=== PATIENT | male | born 1960 | race Caucasian/White ===

== ENCOUNTER → 2020-05-01 11:56 | Outpatient (BNVA) | payer MEDICARE, MEDICAID, SELFPAY | PROVIDERS: PCP Internal Medicine; Visit Provider Urology | DX: Z13.89 Encounter for screening for other disorder (principal) | CPT/HCPCS: Q3014 ==

== ENCOUNTER 2020-07-15 19:50 | Inpatient (IN) | payer MEDICARE, MEDICAID, SELFPAY ==
[2020-07-15 20:07] VITALS: BP 98/66; PULSE 104; RESP 18; TEMP 36.1; O2SAT 97; BMI 22.4
[2020-07-15 20:15] VITALS: BP 94/61
[2020-07-15 20:30] VITALS: BP 102/66
--- NOTE | 2020-07-15 20:36 | ECG_ITS ---
Test Reason : OD Blood Pressure : / mmHG Vent. Rate : 086 BPM Atrial Rate : 086 BPM P-R Int : 186 ms QRS Dur : 098 ms QT Int : 366 ms P-R-T Axes : 062 [id number] 063 degrees QTc Int : 437 ms Normal sinus rhythm Right superior axis deviation Inferior infarct Abnormal ECG When compared with ECG of 26-NOV-2016 02:12, Inferior infarct present now Referred By: Bradley Calvin Electronically Signed By:Luis Campbell
[2020-07-15 20:37] LABS: Glucose Urine UA NEG (NEG); Leukocyte Esterase Urine NEG (NEG); Nitrite Urine NEG (NEG); Specific Gravity - Urine >= 1.030 (1.005-1.025); Urine Blood NEG (NEG); Urine Ketones NEG (NEG); Urine Protein 1+ MG/DL (NEG-TRACE)
[2020-07-15 20:41] LABS: Appearance Urine CLEAR; Color Urine YELLOW
[2020-07-15 20:55] LABS: Bacteria Urine TRACE /LPF; RBC Urine 0-2 /HPF (0); Squamous Epithelial Cell Urine 1+ /LPF; UACC CULT YES
[2020-07-15 21:04] LABS: Amphetamine Screen Urine Not Detected (Not Detect); Barbiturates, Urine Not Detected (Not Detect); Benzodiazepines Screen Urine Not Detected (Not Detect); Cannabinoid Screen Urine POSITIVE (Not Detect); Cocaine Screen Urine POSITIVE (Not Detect); Opiate Screen Urine Not Detected (Not Detect); Phencyclidine Screen Urine Not Detected (Not Detect)
[2020-07-15 21:18] LABS: MANUAL DIFF FLAG NO
[2020-07-15 21:20] LABS: Basophils Absolute Auto 0.1 X10*3/uL (0.0-0.2); Basophils Percent Auto 0.8 % (0-2); Eosinophils Absolute Auto 0.3 X10*3/uL (0.0-0.4); Eosinophils Percent Auto 4.5 % (0-4); Hematocrit 39.6 % (42-52); Hemoglobin 13.9 g/dl (14.0-18.0); Imm Gran Abs Auto 0.02 X10*3/uL (0.00-0.03); Imm Gran Pct Auto 0.3 % (0.0-0.4); Lymphocytes Absolute Auto 3.2 X10*3/uL (1.2-4.9); Lymphocytes Percent Auto 44.8 % (20-40); Mean Corpuscular HGB Conc 35.1 g/dl (31.0-36.0); Mean Corpuscular Hemoglobin 33.2 pg (27.0-33.0); Mean Corpuscular Volume 94.5 fL (80-98); Mean Platelet Volume 8.2 fL (9.4-12.4); Monocytes Absolute Auto 0.6 X10*3/uL (0.1-1.2); Monocytes Percent Auto 8.6 % (2-11); Neutrophils Absolute Auto 2.9 X10*3/uL (2.0-8.3); Platelet Count 272 X10*3/uL (160-400); Red Blood Count 4.19 X10*6/uL (4.60-5.80); Red Cell Distribution Width 13.5 % (11.0-16.0); White Blood Count 7.2 X10*3/uL (4.8-10.8)
[2020-07-15 21:27] LABS: Prothrombin Time 11.5 SEC (10.8-13.0)
--- NOTE | 2020-07-15 21:27 | ED.PSYCH ---
HPI - Psych General Chief Complaint: Psychiatric Symptoms <LOLA Alvarado Last Filed: 07/16/20 02:58> Stated Complaint: SI,OVERDOSE <LOLA Alvarado Last Filed: 07/16/20 02:58> Time Seen by Provider: 07/16/20 03:00 <LOLA Alvarado Last Filed: 07/16/20 02:58> Source: patient <LOLA Alvarado Last Filed: 07/16/20 02:58> Mode of arrival: ambulatory <LOLA Alvarado Last Filed: 07/16/20 02:58> Limitations: no limitations <LOLA Alvarado Last Filed: 07/16/20 02:58> History of Present Illness HPI Narrative: Patient presents to the ED for suicidal attempt. Patient took 5 extra clonidine pills at once earlier today. Patient usually takes for clonidine during day. Patient states he has been depressed and having problem with his new partner. Patient states also he remembered his previous toe partner who from overdose. Patient is tearful <LOLA Alvarado Last Filed: 07/16/20 02:58> Related Data Home Medications: Home Medications Medication Instructions Recorded Confirmed atorvastatin 1 tab PO DAILY 07/16/20 07/16/20 clonidine HCl 1 tab PO QID PRN 07/16/20 07/16/20 dolutegravir-lamivudine [Dovato] 1 tab PO DAILY 07/16/20 07/16/20 qgecamo-scv-jeujt-tenof alafen 1 tab PO DAILY 07/16/20 07/16/20 [Genvoya] esomeprazole magnesium 1 cap PO DAILY 07/16/20 07/16/20 fesoterodine [Toviaz] 1 tab PO DAILY 07/16/20 07/16/20 lamotrigine 1 tab PO BID 07/16/20 07/16/20 methylphenidate HCl 1 tab PO TID 07/16/20 07/16/20 olanzapine 1 tab PO BEDTIME 07/16/20 07/16/20 olanzapine 1 tab PO QAM 07/16/20 07/16/20 oxybutynin chloride 1 tab PO DAILY 07/16/20 07/16/20 prazosin 1 cap PO BEDTIME 07/16/20 07/16/20 quetiapine 1 tab PO TID 07/16/20 07/16/20 sertraline 1 tab PO DAILY 07/16/20 07/16/20 trazodone 1 tab PO BEDTIME 07/16/20 07/16/20 trimethoprim 1 tab PO DAILY 07/16/20 07/16/20 <LOLA Alvarado Last Filed: 07/16/20 02:58> Allergies/Adverse Reactions: Allergies Allergy/AdvReac Type Severity Reaction Status Date / Time bee pollen [BEE STINGS] Allergy Severe ANAPHYLAXIS Verified 07/16/20 00:00 <LOLA Alvarado Last Filed: 07/16/20 02:58> Review of Systems Review of Systems: Yes all other systems are reviewed and are negative <LOLA Alvarado Last Filed: 07/16/20 02:58> Constitutional: Constitutional: Reports as per HPI and Reports no additional constitutional complaints <LOLA Alvarado Last Filed: 07/16/20 02:58> Eyes: Eyes: Reports as per HPI and Reports no additional eye complaints <LOLA Alvarado Last Filed: 07/16/20 02:58> ENT: Reports system reviewed and no additional complaints, except as documented and Reports as per HPI <LOLA Alvarado Last Filed: 07/16/20 02:58> Cardiovascular: Cardiovascular: Reports as per HPI and Reports no additional cardiovascular complaints <LOLA Alvarado Last Filed: 07/16/20 02:58> Respiratory: Respiratory: Reports as per HPI and Reports no additional respiratory complaints <LOLA Alvarado Last Filed: 07/16/20 02:58> Gastrointestinal: Gastrointestinal: Reports as per HPI and Reports no additional gastrointestinal complaints <LOLA Alvarado Last Filed: 07/16/20 02:58> Genitourinary: Genitourinary: Reports no additional male genitourinary complaints and Reports as per HPI <LOLA Alvarado Last Filed: 07/16/20 02:58> Musculoskeletal: Musculoskeletal: Reports no additional musculoskeletal complaints and Reports as per HPI <LOLA Alvarado Last Filed: 07/16/20 02:58> Neurologic: Reports system reviewed and no additional complaints, except as documented and Reports as per HPI <LOLA Alvarado - Last Filed: 07/16/20 02:58> [facility] Past Medical History Medical History: Medical History ADHD Anxiety Arthritis Asthma Back pain Bipolar 1 disorder Bladder cancer CAD (coronary artery disease) COPD (chronic obstructive pulmonary disease) Depression GERD (gastroesophageal reflux disease) History of CVA (cerebrovascular accident) HIV (human immunodeficiency virus infection) HTN (hypertension) Hx of deep venous thrombosis Hx of traumatic brain injury Hypercholesterolemia Memory deficit Murmur Myocardial infarction Smoker Urge incontinence <LOLA Alvarado - Last Filed: 07/16/20 02:58> Surgical History: Surgical History History of nasal surgery History of total right hip replacement Hx of cystoscopy <LOLA Alvarado - Last Filed: 07/16/20 02:58> Social History Social History: Social History Advance Directives: No Advance Directives Information Provided: Yes Guardian: No <LOLA Alvarado - Last Filed: 07/16/20 02:58> Physical Exam Vital Signs: Vital Signs: Last Vital Signs Temp 97.1 F 07/16/20 00:32 Pulse 75 07/16/20 00:32 Resp 18 07/16/20 00:32 BP 119/80 07/16/20 00:32 Pulse Ox 97 07/16/20 00:32 Body Mass Index 22.4 <LOLA Alvarado - Last Filed: 07/16/20 02:58> Vital Signs: Last Vital Signs Temp 97.1 F 07/16/20 00:32 Pulse 75 07/16/20 00:32 Resp 18 07/16/20 00:32 BP 119/80 07/16/20 00:32 Pulse Ox 97 07/16/20 00:32 Body Mass Index 22.4 <Keara Tristan MD - Last Filed: 07/16/20 04:20> Const: General: cooperative, healthy appearing, comfortable, no acute distress, well developed, alert, awake and Physically active <LOLA Alvarado - Last Filed: 07/16/20 02:58> Orientation/consciousness: patient oriented x3 <Bradley Nikunj LOLA Kelley Filed: 07/16/20 02:58> HENMT: Head: Yes normal to inspection, Yes No palpable skull fracture present, Yes normocephalic, Yes atraumatic and Yes abrasion <Bradley Nikunj LOLA Filed: 07/16/20 02:58> Eyes: General: appearance normal, both eyes and all related structures <Bradley Nikunj, PA Last Filed: 07/16/20 02:58> Neck: Neck: Yes normal visual inspection, Yes full ROM, Yes no lymphadenopathy, Yes no meningeal signs, Yes trachea midline, Yes supple and No tender <Bradley Nikunj [facility] Last Filed: 07/16/20 02:58> Chest: Chest palpation & inspection: normal inspection of the chest and normal palpation of entire chest wall <Bradley Nikunj LOLA Filed: 07/16/20 02:58> Resp: Effort & Inspection: normal respiratory effort and able to speak in complete sentences <Bradley Nikunj, LOLA Filed: 07/16/20 02:58> Auscultation: clear to auscultation bilaterally <Bradley Nikunj LOLA Filed: 07/16/20 02:58> Cardio: Jugular venous distension: no JVD <Bradley Nikunj, LOLA Filed: 07/16/20 02:58> Heart sounds: S1 normal heart sound present and S2 normal heart sound present <Bradley Nikunj LOLA Filed: 07/16/20 02:58> GI: Inspection: Yes normal to inspection and No abdominal wall ecchymosis <Bradley Nikunj, LOLA Filed: 07/16/20 02:58> Palpation (GI): Soft to palpation, not firm, nontender, no guarding and not rigid <Bradley Nikunj, LOLA Filed: 07/16/20 02:58> : General: No CVA tenderness and Yes no CVA tenderness <Bradley Nikunj, LOLA Filed: 07/16/20 02:58> Back/Spine/Pelvis: Back: no CVA tenderness, No CVA tenderness and No back tenderness <Bradley Nikunj, PA Last Filed: 07/16/20 02:58> Skin: General skin exam: no rashes or lesions noted and elasticity normal <LOLA Alvarado Last Filed: 07/16/20 02:58> Neuro: General: patient oriented x3, no meningeal signs and CN's II-XI intact bilaterally <LOLA Alvarado - Last Filed: 07/16/20 02:58> Cranial nerves: Yes CN's II-XII intact bilaterally <LOLA Alvarado - Last Filed: 07/16/20 02:58> Extrem: General: Yes normal to inspection and Yes full ROM <LOLA Alvarado - Last Filed: 07/16/20 02:58> Psych: Appearance: grossly normal, well kempt and not disheveled <LOLA Alvarado Last Filed: 07/16/20 02:58> Course Course Course Narrative: Patient had EKG and labs. Patient's vital signs stable. Patient will get care team evaluation. <LOLA Alvarado Last Filed: 07/16/20 02:58> Reviewed all repeat lab work which was without acute findings and primarily appear to be improved when compared to prior. Patient is currently medically cleared for further evaluation by the behavioral team. <Keara Tristan MD - Last Filed: 07/16/20 04:20> Reevaluation(s) Reevaluation #1: Labs are normal at baseline. EKG negative for prolonged QT. <LOLA Alvarado - Last Filed: 07/16/20 02:58> Patient placed in physician observation because the patient needed more time for BHN evaluation. At the time observation was started the patient's vital signs were stable, patient is alert and oriented but slightly agitated, neuro: Nonfocal, CV RRR, lungs clear <Keara Tristan MD - Last Filed: 07/16/20 04:20> Time: 04:20 <Keara Tristan MD - Last Filed: 07/16/20 04:20> Reevaluation #2: Care team has evaluated patient and recommended inpatient admission. <LOLA Alvarado - Last Filed: 07/16/20 02:58> Reevaluation #3: Called and spoke to poison Control and they recommend patient to have repeat labs now. Recommend nurse call back with repeat labs. Patient presently alert oriented x3. Presently poison Control does not recommend any medical intervention. Patient is a bed search.Case signed out to Dr. Tristan <LOLA Alvarado - Last Filed: 07/16/20 02:58> MDM - Psych MDM Narrative Medical decision making narrative: Depression. Suicide attempt <LOLA Alvarado - Last Filed: 07/16/20 02:58> Lab Data Result diagrams: : 07/16/20 03:03 07/16/20 03:03 <LOLA Alvarado - Last Filed: 07/16/20 02:58> Labs: Lab Results 07/15/20 07/15/20 07/15/20 Range/Units 20:23 20:23 21:01 WBC 7.2 (4.8-10.8) X10*3/uL RBC 4.19 L (4.60-5.80) X10*6/uL Hgb 13.9 L (14.0-18.0) g/dl Hct 39.6 L (42-52) % MCV 94.5 (80-98) fL MCH 33.2 H (27.0-33.0) pg MCHC 35.1 (31.0-36.0) g/dl RDW 13.5 (11.0-16.0) % Plt Count 272 (160-400) X10*3/uL MPV 8.2 L (9.4-12.4) fL Immature Gran % (Auto) 0.3 (0.0-0.4) % Neut % (Auto) 41.0 L (45-73) % Lymph % (Auto) 44.8 H (20-40) % Bailey % (Auto) 8.6 (2-11) % Eos % (Auto) 4.5 H (0-4) % Baso % (Auto) 0.8 (0-2) % Lymph # (Auto) 3.2 (1.2-4.9) X10*3/uL Bailey # (Auto) 0.6 (0.1-1.2) X10*3/uL Eos # (Auto) 0.3 (0.0-0.4) X10*3/uL Baso # (Auto) 0.1 (0.0-0.2) X10*3/uL Abs Immat Gran (auto) 0.02 (0.00-0.03) X10*3/uL Absolute Neuts (auto) 2.9 (2.0-8.3) X10*3/uL Absolute Nucleated RBC 0.000 (0.0-0.012) X10*3/uL Nucleated RBC % (auto) 0.0 (0.0-0.2) /100WBC PT (10.8-13.0) SEC INR (0.9-1.1) APTT (24.1-38.0) SEC Sodium (135-145) mmol/L Potassium (3.3-5.1) mmol/L Chloride (96-108) mmol/L Carbon Dioxide (22-29) mmol/L Anion Gap (12-20) BUN (9-16) mg/dL Creatinine (0.5-1.4) mg/dL Estim Creat Clear Calc Estimated GFR Random Glucose (60-115) mg/dL Calcium (8.4-10.2) mg/dL Total Bilirubin (0.0-1.0) mg/dL Direct Bilirubin (0.0-0.5) mg/dL AST (5-37) U/L ALT (0-40) U/L Alkaline Phosphatase (39-117) U/L Total Protein (6.5-8.0) g/dL Albumin (3.5-5.0) g/dL Specimen Comment Urine Color YELLOW Urine Appearance CLEAR Urine pH 6.0 (5.0-8.0) Ur Specific [place] >= 1.030 H (1.005-1.025) Urine Protein 1+ H (NEG-TRACE) MG/DL Urine Glucose (UA) NEG (NEG) MG/DL Urine Ketones NEG (NEG) MG/DL Urine Blood NEG (NEG) Urine Nitrite NEG (NEG) Ur Leukocyte Esterase NEG (NEG) Urine RBC 0-2 (0) /HPF Urine WBC 5-9 H (0-4) /HPF Ur Squamous Epith Cells 1+ /LPF Urine Bacteria TRACE /LPF Salicylates (15-30) mg/dL Urine Opiates Screen Not Detected (Not Detect) Acetaminophen (<30) mcg/mL Ur Barbiturates Screen Not Detected (Not Detect) Ur Phencyclidine Scrn Not Detected (Not Detect) Ur Amphetamines Screen Not Detected (Not Detect) U Benzodiazepines Scrn Not Detected (Not Detect) Urine Cocaine Screen POSITIVE H (Not Detect) U Marijuana (THC) Screen POSITIVE H (Not Detect) Ethyl Alcohol mg/dL COVID-19 (BRIAN) (Negative) COVID-19 Clin Com 07/15/20 07/15/20 07/15/20 Range/Units 21:01 21:01 21:01 WBC (4.8-10.8) X10*3/uL RBC (4.60-5.80) X10*6/uL Hgb (14.0-18.0) g/dl Hct (42-52) % MCV (80-98) fL MCH (27.0-33.0) pg MCHC (31.0-36.0) g/dl RDW (11.0-16.0) % Plt Count (160-400) X10*3/uL MPV (9.4-12.4) fL Immature Gran % (Auto) (0.0-0.4) % Neut % (Auto) (45-73) % Lymph % (Auto) (20-40) % Bailey % (Auto) (2-11) % Eos % (Auto) (0-4) % Baso % (Auto) (0-2) % Lymph # (Auto) (1.2-4.9) X10*3/uL Bailey # (Auto) (0.1-1.2) X10*3/uL Eos # (Auto) (0.0-0.4) X10*3/uL Baso # (Auto) (0.0-0.2) X10*3/uL Abs Immat Gran (auto) (0.00-0.03) X10*3/uL Absolute Neuts (auto) (2.0-8.3) X10*3/uL Absolute Nucleated RBC (0.0-0.012) X10*3/uL Nucleated RBC % (auto) (0.0-0.2) /100WBC PT 11.5 (10.8-13.0) SEC INR 1.0 (0.9-1.1) APTT 32.8 (24.1-38.0) SEC Sodium 137 (135-145) mmol/L Potassium 4.0 (3.3-5.1) mmol/L Chloride 106 (96-108) mmol/L Carbon Dioxide 23 (22-29) mmol/L Anion Gap 12 (12-20) BUN 16 (9-16) mg/dL Creatinine 0.91 (0.5-1.4) mg/dL Estim Creat Clear Calc 76.6 Estimated GFR > 60 Random Glucose 123 H (60-115) mg/dL Calcium 9.6 (8.4-10.2) mg/dL Total Bilirubin 0.4 (0.0-1.0) mg/dL Direct Bilirubin (0.0-0.5) mg/dL AST 10 (5-37) U/L ALT 6 (0-40) U/L Alkaline Phosphatase 107 (39-117) U/L Total Protein 5.7 L (6.5-8.0) g/dL Albumin 3.6 (3.5-5.0) g/dL Specimen Comment Urine Color Urine Appearance Urine pH (5.0-8.0) Ur Specific [place] (1.005-1.025) Urine Protein (NEG-TRACE) MG/DL Urine Glucose (UA) (NEG) MG/DL Urine Ketones (NEG) MG/DL Urine Blood (NEG) Urine Nitrite (NEG) Ur Leukocyte Esterase (NEG) Urine RBC (0) /HPF Urine WBC (0-4) /HPF Ur Squamous Epith Cells /LPF Urine Bacteria /LPF Salicylates < 5.0 L (15-30) mg/dL Urine Opiates Screen (Not Detect) Acetaminophen < 1 (<30) mcg/mL Ur Barbiturates Screen (Not Detect) Ur Phencyclidine Scrn (Not Detect) Ur Amphetamines Screen (Not Detect) U Benzodiazepines Scrn (Not Detect) Urine Cocaine Screen (Not Detect) U Marijuana (THC) Screen (Not Detect) Ethyl Alcohol < 10 mg/dL COVID-19 (BRIAN) (Negative) COVID-19 Clin Com 07/15/20 07/15/20 07/16/20 Range/Units 21:01 21:01 02:28 WBC (4.8-10.8) X10*3/uL RBC (4.60-5.80) X10*6/uL Hgb (14.0-18.0) g/dl Hct (42-52) % MCV (80-98) fL MCH (27.0-33.0) pg MCHC (31.0-36.0) g/dl RDW (11.0-16.0) % Plt Count (160-400) X10*3/uL MPV (9.4-12.4) fL Immature Gran % (Auto) (0.0-0.4) % Neut % (Auto) (45-73) % Lymph % (Auto) (20-40) % Bailey % (Auto) (2-11) % Eos % (Auto) (0-4) % Baso % (Auto) (0-2) % Lymph # (Auto) (1.2-4.9) X10*3/uL Bailey # (Auto) (0.1-1.2) X10*3/uL Eos # (Auto) (0.0-0.4) X10*3/uL Baso # (Auto) (0.0-0.2) X10*3/uL Abs Immat Gran (auto) (0.00-0.03) X10*3/uL Absolute Neuts (auto) (2.0-8.3) X10*3/uL Absolute Nucleated RBC (0.0-0.012) X10*3/uL Nucleated RBC % (auto) (0.0-0.2) /100WBC PT (10.8-13.0) SEC INR (0.9-1.1) APTT (24.1-38.0) SEC Sodium (135-145) mmol/L Potassium (3.3-5.1) mmol/L Chloride (96-108) mmol/L Carbon Dioxide (22-29) mmol/L Anion Gap (12-20) BUN (9-16) mg/dL Creatinine (0.5-1.4) mg/dL Estim Creat Clear Calc Estimated GFR Random Glucose (60-115) mg/dL Calcium (8.4-10.2) mg/dL Total Bilirubin 0.4 (0.0-1.0) mg/dL Direct Bilirubin < 0.2 (0.0-0.5) mg/dL AST 11 (5-37) U/L ALT 7 (0-40) U/L Alkaline Phosphatase 107 (39-117) U/L Total Protein 5.7 L (6.5-8.0) g/dL Albumin 3.6 (3.5-5.0) g/dL Specimen Comment DELAY Urine Color Urine Appearance Urine pH (5.0-8.0) Ur Specific [place] (1.005-1.025) Urine Protein (NEG-TRACE) MG/DL Urine Glucose (UA) (NEG) MG/DL Urine Ketones (NEG) MG/DL Urine Blood (NEG) Urine Nitrite (NEG) Ur Leukocyte Esterase (NEG) Urine RBC (0) /HPF Urine WBC (0-4) /HPF Ur Squamous Epith Cells /LPF Urine Bacteria /LPF Salicylates (15-30) mg/dL Urine Opiates Screen (Not Detect) Acetaminophen (<30) mcg/mL Ur Barbiturates Screen (Not Detect) Ur Phencyclidine Scrn (Not Detect) Ur Amphetamines Screen (Not Detect) U Benzodiazepines Scrn (Not Detect) Urine Cocaine Screen (Not Detect) U Marijuana (THC) Screen (Not Detect) Ethyl Alcohol mg/dL COVID-19 (BRIAN) Negative (Negative) COVID-19 Clin Com See Note 07/16/20 07/16/20 07/16/20 Range/Units 03:03 03:03 03:03 WBC 6.7 (4.8-10.8) X10*3/uL RBC 4.24 L (4.60-5.80) X10*6/uL Hgb 14.0 (14.0-18.0) g/dl Hct 40.0 L (42-52) % MCV 94.3 (80-98) fL MCH 33.0 (27.0-33.0) pg MCHC 35.0 (31.0-36.0) g/dl RDW 13.7 (11.0-16.0) % Plt Count 269 (160-400) X10*3/uL MPV 8.1 L (9.4-12.4) fL Immature Gran % (Auto) 0.3 (0.0-0.4) % Neut % (Auto) 31.2 L (45-73) % Lymph % (Auto) 53.4 H (20-40) % Bailey % (Auto) 8.9 (2-11) % Eos % (Auto) 4.9 H (0-4) % Baso % (Auto) 1.3 (0-2) % Lymph # (Auto) 3.6 (1.2-4.9) X10*3/uL Bailey # (Auto) 0.6 (0.1-1.2) X10*3/uL Eos # (Auto) 0.3 (0.0-0.4) X10*3/uL Baso # (Auto) 0.1 (0.0-0.2) X10*3/uL Abs Immat Gran (auto) 0.02 (0.00-0.03) X10*3/uL Absolute Neuts (auto) 2.1 (2.0-8.3) X10*3/uL Absolute Nucleated RBC 0.000 (0.0-0.012) X10*3/uL Nucleated RBC % (auto) 0.0 (0.0-0.2) /100WBC PT (10.8-13.0) SEC INR (0.9-1.1) APTT (24.1-38.0) SEC Sodium 137 (135-145) mmol/L Potassium 4.1 (3.3-5.1) mmol/L Chloride 106 (96-108) mmol/L Carbon Dioxide 26 (22-29) mmol/L Anion Gap 9 L (12-20) BUN 16 (9-16) mg/dL Creatinine 0.84 (0.5-1.4) mg/dL Estim Creat Clear Calc 83.0 Estimated GFR > 60 Random Glucose 105 (60-115) mg/dL Calcium 9.6 (8.4-10.2) mg/dL Total Bilirubin 0.4 (0.0-1.0) mg/dL Direct Bilirubin < 0.2 (0.0-0.5) mg/dL AST 10 (5-37) U/L ALT 6 (0-40) U/L Alkaline Phosphatase 102 (39-117) U/L Total Protein 5.5 L (6.5-8.0) g/dL Albumin 3.5 (3.5-5.0) g/dL Specimen Comment Urine Color Urine Appearance Urine pH (5.0-8.0) Ur Specific [place] (1.005-1.025) Urine Protein (NEG-TRACE) MG/DL Urine Glucose (UA) (NEG) MG/DL Urine Ketones (NEG) MG/DL Urine Blood (NEG) Urine Nitrite (NEG) Ur Leukocyte Esterase (NEG) Urine RBC (0) /HPF Urine WBC (0-4) /HPF Ur Squamous Epith Cells /LPF Urine Bacteria /LPF Salicylates < 5.0 L (15-30) mg/dL Urine Opiates Screen (Not Detect) Acetaminophen < 1 (<30) mcg/mL Ur Barbiturates Screen (Not Detect) Ur Phencyclidine Scrn (Not Detect) Ur Amphetamines Screen (Not Detect) U Benzodiazepines Scrn (Not Detect) Urine Cocaine Screen (Not Detect) U Marijuana (THC) Screen (Not Detect) Ethyl Alcohol < 10 mg/dL COVID-19 (BRIAN) (Negative) COVID-19 Clin Com <LOLA Alvarado - Last Filed: 07/16/20 02:58> Lab Results 07/15/20 07/15/20 07/15/20 Range/Units 20:23 20:23 21:01 WBC 7.2 (4.8-10.8) X10*3/uL RBC 4.19 L (4.60-5.80) X10*6/uL Hgb 13.9 L (14.0-18.0) g/dl Hct 39.6 L (42-52) % MCV 94.5 (80-98) fL MCH 33.2 H (27.0-33.0) pg MCHC 35.1 (31.0-36.0) g/dl RDW 13.5 (11.0-16.0) % Plt Count 272 (160-400) X10*3/uL MPV 8.2 L (9.4-12.4) fL Immature Gran % (Auto) 0.3 (0.0-0.4) % Neut % (Auto) 41.0 L (45-73) % Lymph % (Auto) 44.8 H (20-40) % Bailey % (Auto) 8.6 (2-11) % Eos % (Auto) 4.5 H (0-4) % Baso % (Auto) 0.8 (0-2) % Lymph # (Auto) 3.2 (1.2-4.9) X10*3/uL Bailey # (Auto) 0.6 (0.1-1.2) X10*3/uL Eos # (Auto) 0.3 (0.0-0.4) X10*3/uL Baso # (Auto) 0.1 (0.0-0.2) X10*3/uL Abs Immat Gran (auto) 0.02 (0.00-0.03) X10*3/uL Absolute Neuts (auto) 2.9 (2.0-8.3) X10*3/uL Absolute Nucleated RBC 0.000 (0.0-0.012) X10*3/uL Nucleated RBC % (auto) 0.0 (0.0-0.2) /100WBC PT (10.8-13.0) SEC INR (0.9-1.1) APTT (24.1-38.0) SEC Sodium (135-145) mmol/L Potassium (3.3-5.1) mmol/L Chloride (96-108) mmol/L Carbon Dioxide (22-29) mmol/L Anion Gap (12-20) BUN (9-16) mg/dL Creatinine (0.5-1.4) mg/dL Estim Creat Clear Calc Estimated GFR Random Glucose (60-115) mg/dL Calcium (8.4-10.2) mg/dL Total Bilirubin (0.0-1.0) mg/dL Direct Bilirubin (0.0-0.5) mg/dL AST (5-37) U/L ALT (0-40) U/L Alkaline Phosphatase (39-117) U/L Total Protein (6.5-8.0) g/dL Albumin (3.5-5.0) g/dL Specimen Comment Urine Color YELLOW Urine Appearance CLEAR Urine pH 6.0 (5.0-8.0) Ur Specific [place] >= 1.030 H (1.005-1.025) Urine Protein 1+ H (NEG-TRACE) MG/DL Urine Glucose (UA) NEG (NEG) MG/DL Urine Ketones NEG (NEG) MG/DL Urine Blood NEG (NEG) Urine Nitrite NEG (NEG) Ur Leukocyte Esterase NEG (NEG) Urine RBC 0-2 (0) /HPF Urine WBC 5-9 H (0-4) /HPF Ur Squamous Epith Cells 1+ /LPF Urine Bacteria TRACE /LPF Salicylates (15-30) mg/dL Urine Opiates Screen Not Detected (Not Detect) Acetaminophen (<30) mcg/mL Ur Barbiturates Screen Not Detected (Not Detect) Ur Phencyclidine Scrn Not Detected (Not Detect) Ur Amphetamines Screen Not Detected (Not Detect) U Benzodiazepines Scrn Not Detected (Not Detect) Urine Cocaine Screen POSITIVE H (Not Detect) U Marijuana (THC) Screen POSITIVE H (Not Detect) Ethyl Alcohol mg/dL COVID-19 (BRIAN) (Negative) COVID-19 Clin Com 07/15/20 07/15/20 07/15/20 Range/Units 21:01 21:01 21:01 WBC (4.8-10.8) X10*3/uL RBC (4.60-5.80) X10*6/uL Hgb (14.0-18.0) g/dl Hct (42-52) % MCV (80-98) fL MCH (27.0-33.0) pg MCHC (31.0-36.0) g/dl RDW (11.0-16.0) % Plt Count (160-400) X10*3/uL MPV (9.4-12.4) fL Immature Gran % (Auto) (0.0-0.4) % Neut % (Auto) (45-73) % Lymph % (Auto) (20-40) % Bailey % (Auto) (2-11) % Eos % (Auto) (0-4) % Baso % (Auto) (0-2) % Lymph # (Auto) (1.2-4.9) X10*3/uL Bailey # (Auto) (0.1-1.2) X10*3/uL Eos # (Auto) (0.0-0.4) X10*3/uL Baso # (Auto) (0.0-0.2) X10*3/uL Abs Immat Gran (auto) (0.00-0.03) X10*3/uL Absolute Neuts (auto) (2.0-8.3) X10*3/uL Absolute Nucleated RBC (0.0-0.012) X10*3/uL Nucleated RBC % (auto) (0.0-0.2) /100WBC PT 11.5 (10.8-13.0) SEC INR 1.0 (0.9-1.1) APTT 32.8 (24.1-38.0) SEC Sodium 137 (135-145) mmol/L Potassium 4.0 (3.3-5.1) mmol/L Chloride 106 (96-108) mmol/L Carbon Dioxide 23 (22-29) mmol/L Anion Gap 12 (12-20) BUN 16 (9-16) mg/dL Creatinine 0.91 (0.5-1.4) mg/dL Estim Creat Clear Calc 76.6 Estimated GFR > 60 Random Glucose 123 H (60-115) mg/dL Calcium 9.6 (8.4-10.2) mg/dL Total Bilirubin 0.4 (0.0-1.0) mg/dL Direct Bilirubin (0.0-0.5) mg/dL AST 10 (5-37) U/L ALT 6 (0-40) U/L Alkaline Phosphatase 107 (39-117) U/L Total Protein 5.7 L (6.5-8.0) g/dL Albumin 3.6 (3.5-5.0) g/dL Specimen Comment Urine Color Urine Appearance Urine pH (5.0-8.0) Ur Specific [place] (1.005-1.025) Urine Protein (NEG-TRACE) MG/DL Urine Glucose (UA) (NEG) MG/DL Urine Ketones (NEG) MG/DL Urine Blood (NEG) Urine Nitrite (NEG) Ur Leukocyte Esterase (NEG) Urine RBC (0) /HPF Urine WBC (0-4) /HPF Ur Squamous Epith Cells /LPF Urine Bacteria /LPF Salicylates < 5.0 L (15-30) mg/dL Urine Opiates Screen (Not Detect) Acetaminophen < 1 (<30) mcg/mL Ur Barbiturates Screen (Not Detect) Ur Phencyclidine Scrn (Not Detect) Ur Amphetamines Screen (Not Detect) U Benzodiazepines Scrn (Not Detect) Urine Cocaine Screen (Not Detect) U Marijuana (THC) Screen (Not Detect) Ethyl Alcohol < 10 mg/dL COVID-19 ([facility]RIAN) (Negative) COVID-19 Clin Com 07/15/20 07/15/20 07/16/20 Range/Units 21:01 21:01 02:28 WBC (4.8-10.8) X10*3/uL RBC (4.60-5.80) X10*6/uL Hgb (14.0-18.0) g/dl Hct (42-52) % MCV (80-98) fL MCH (27.0-33.0) pg MCHC (31.0-36.0) g/dl RDW (11.0-16.0) % Plt Count (160-400) X10*3/uL MPV (9.4-12.4) fL Immature Gran % (Auto) (0.0-0.4) % Neut % (Auto) (45-73) % Lymph % (Auto) (20-40) % Bailey % (Auto) (2-11) % Eos % (Auto) (0-4) % Baso % (Auto) (0-2) % Lymph # (Auto) (1.2-4.9) X10*3/uL Bailey # (Auto) (0.1-1.2) X10*3/uL Eos # (Auto) (0.0-0.4) X10*3/uL Baso # (Auto) (0.0-0.2) X10*3/uL Abs Immat Gran (auto) (0.00-0.03) X10*3/uL Absolute Neuts (auto) (2.0-8.3) X10*3/uL Absolute Nucleated RBC (0.0-0.012) X10*3/uL Nucleated RBC % (auto) (0.0-0.2) /100WBC PT (10.8-13.0) SEC INR (0.9-1.1) APTT (24.1-38.0) SEC Sodium (135-145) mmol/L Potassium (3.3-5.1) mmol/L Chloride (96-108) mmol/L Carbon Dioxide (22-29) mmol/L Anion Gap (12-20) BUN (9-16) mg/dL Creatinine (0.5-1.4) mg/dL Estim Creat Clear Calc Estimated GFR Random Glucose (60-115) mg/dL Calcium (8.4-10.2) mg/dL Total Bilirubin 0.4 (0.0-1.0) mg/dL Direct Bilirubin < 0.2 (0.0-0.5) mg/dL AST 11 (5-37) U/L ALT 7 (0-40) U/L Alkaline Phosphatase 107 (39-117) U/L Total Protein 5.7 L (6.5-8.0) g/dL Albumin 3.6 (3.5-5.0) g/dL Specimen Comment DELAY Urine Color Urine Appearance Urine pH (5.0-8.0) Ur Specific [place] (1.005-1.025) Urine Protein (NEG-TRACE) MG/DL Urine Glucose (UA) (NEG) MG/DL Urine Ketones (NEG) MG/DL Urine Blood (NEG) Urine Nitrite (NEG) Ur Leukocyte Esterase (NEG) Urine RBC (0) /HPF Urine WBC (0-4) /HPF Ur Squamous Epith Cells /LPF Urine Bacteria /LPF Salicylates (15-30) mg/dL Urine Opiates Screen (Not Detect) Acetaminophen (<30) mcg/mL Ur Barbiturates Screen (Not Detect) Ur Phencyclidine Scrn (Not Detect) Ur Amphetamines Screen (Not Detect) U Benzodiazepines Scrn (Not Detect) Urine Cocaine Screen (Not Detect) U Marijuana (THC) Screen (Not Detect) Ethyl Alcohol mg/dL COVID-19 (BRIAN) Negative (Negative) COVID-19 Clin Com See Note 07/16/20 07/16/20 07/16/20 Range/Units 03:03 03:03 03:03 WBC 6.7 (4.8-10.8) X10*3/uL RBC 4.24 L (4.60-5.80) X10*6/uL Hgb 14.0 (14.0-18.0) g/dl Hct 40.0 L (42-52) % MCV 94.3 (80-98) fL MCH 33.0 (27.0-33.0) pg MCHC 35.0 (31.0-36.0) g/dl RDW 13.7 (11.0-16.0) % Plt Count 269 (160-400) X10*3/uL MPV 8.1 L (9.4-12.4) fL Immature Gran % (Auto) 0.3 (0.0-0.4) % Neut % (Auto) 31.2 L (45-73) % Lymph % (Auto) 53.4 H (20-40) % Bailey % (Auto) 8.9 (2-11) % Eos % (Auto) 4.9 H (0-4) % Baso % (Auto) 1.3 (0-2) % Lymph # (Auto) 3.6 (1.2-4.9) X10*3/uL Bailey # (Auto) 0.6 (0.1-1.2) X10*3/uL Eos # (Auto) 0.3 (0.0-0.4) X10*3/uL Baso # (Auto) 0.1 (0.0-0.2) X10*3/uL Abs Immat Gran (auto) 0.02 (0.00-0.03) X10*3/uL Absolute Neuts (auto) 2.1 (2.0-8.3) X10*3/uL Absolute Nucleated RBC 0.000 (0.0-0.012) X10*3/uL Nucleated RBC % (auto) 0.0 (0.0-0.2) /100WBC PT (10.8-13.0) SEC INR (0.9-1.1) APTT (24.1-38.0) SEC Sodium 137 (135-145) mmol/L Potassium 4.1 (3.3-5.1) mmol/L Chloride 106 (96-108) mmol/L Carbon Dioxide 26 (22-29) mmol/L Anion Gap 9 L (12-20) BUN 16 (9-16) mg/dL Creatinine 0.84 (0.5-1.4) mg/dL Estim Creat Clear Calc 83.0 Estimated GFR > 60 Random Glucose 105 (60-115) mg/dL Calcium 9.6 (8.4-10.2) mg/dL Total Bilirubin 0.4 (0.0-1.0) mg/dL Direct Bilirubin < 0.2 (0.0-0.5) mg/dL AST 10 (5-37) U/L ALT 6 (0-40) U/L Alkaline Phosphatase 102 (39-117) U/L Total Protein 5.5 L (6.5-8.0) g/dL Albumin 3.5 (3.5-5.0) g/dL Specimen Comment Urine Color Urine Appearance Urine pH (5.0-8.0) Ur Specific [place] (1.005-1.025) Urine Protein (NEG-TRACE) MG/DL Urine Glucose (UA) (NEG) MG/DL Urine Ketones (NEG) MG/DL Urine Blood (NEG) Urine Nitrite (NEG) Ur Leukocyte Esterase (NEG) Urine RBC (0) /HPF Urine WBC (0-4) /HPF Ur Squamous Epith Cells /LPF Urine Bacteria /LPF Salicylates < 5.0 L (15-30) mg/dL Urine Opiates Screen (Not Detect) Acetaminophen < 1 (<30) mcg/mL Ur Barbiturates Screen (Not Detect) Ur Phencyclidine Scrn (Not Detect) Ur Amphetamines Screen (Not Detect) U Benzodiazepines Scrn (Not Detect) Urine Cocaine Screen (Not Detect) U Marijuana (THC) Screen (Not Detect) Ethyl Alcohol < 10 mg/dL COVID-19 (BRIAN) (Negative) COVID-19 Clin Com <Keara Tristan MD - Last Filed: 07/16/20 04:20> Discharge Plan Discharge Prescriptions: No Action clonidine HCl 0.1 mg tablet 1 tab PO QID PRN (Reason: anxiety) RF: 0 atorvastatin 20 mg tablet 1 tab PO DAILY RF: 0 lamotrigine 200 mg tablet 1 tab PO BID RF: 0 methylphenidate HCl 20 mg tablet 1 tab PO TID RF: 0 sertraline 100 mg tablet 1 tab PO DAILY RF: 0 olanzapine 5 mg tablet 1 tab PO QAM RF: 0 trimethoprim 100 mg tablet 1 tab PO DAILY RF: 0 quetiapine 100 mg tablet 1 tab PO TID RF: 0 trazodone 100 mg tablet 1 tab PO BEDTIME RF: 0 esomeprazole magnesium 40 mg capsule,delayed release(DR/EC) 1 cap PO DAILY RF: 0 oxybutynin chloride 5 mg tablet extended release 24hr 1 tab PO DAILY RF: 0 olanzapine 15 mg tablet 1 tab PO BEDTIME RF: 0 prazosin 2 mg capsule 1 cap PO BEDTIME RF: 0 Toviaz 4 mg tablet extended release 24 hr 1 tab PO DAILY RF: 0 Genvoya [phone] mg tablet 1 tab PO DAILY RF: 0 Dovato 50-300 mg tablet 1 tab PO DAILY RF: 0 <LOLA Alvarado - Last Filed: 07/16/20 02:58>
[2020-07-15 21:30] LABS: Partial Thromboplastin Time 32.8 SEC (24.1-38.0)
[2020-07-15 21:42] LABS: Ethanol < 10 mg/dL
[2020-07-15 21:44] VITALS: BP 106/70; PULSE 83; RESP 16; TEMP 37.2; O2SAT 96
[2020-07-15 21:44] LABS: Alanine Aminotransferase 7 U/L (0-40); Albumin Level 3.6 g/dL (3.5-5.0); Alkaline Phosphatase 107 U/L (39-117); Aspartate Amino Transferase 11 U/L (5-37); Bilirubin Direct < 0.2 mg/dL (0.0-0.5); Bilirubin Total 0.4 mg/dL (0.0-1.0); Total Protein 5.7 g/dL (6.5-8.0)
[2020-07-15 21:56] LABS: Alanine Aminotransferase 6 U/L (0-40); Albumin Level 3.6 g/dL (3.5-5.0); Alkaline Phosphatase 107 U/L (39-117); Anion Gap 12 (12-20); Aspartate Amino Transferase 10 U/L (5-37); Bilirubin Total 0.4 mg/dL (0.0-1.0); Blood Urea Nitrogen 16 mg/dL (9-16); Calcium 9.6 mg/dL (8.4-10.2); Carbon Dioxide 23 mmol/L (22-29); Chloride 106 mmol/L (96-108); Creatinine Clr Calc Pharmacy 76.6; Estimated Glomerular Filt Rate > 60; Glucose Random 123 mg/dL (60-115); Salicylate < 5.0 mg/dL (15-30); Sodium 137 mmol/L (135-145); Total Protein 5.7 g/dL (6.5-8.0)
[2020-07-15 23:33] LABS: Delay - Chemistry DELAY
[2020-07-16 00:32] VITALS: BP 119/80; PULSE 75; RESP 18; TEMP 36.2; O2SAT 97
[2020-07-16 02:53] LABS: COVID-19 Test Negative (Negative)
[2020-07-16 03:02] LABS: Acetaminophen LAB < 1 mcg/mL (<30)
[2020-07-16 03:12] LABS: Basophils Absolute Auto 0.1 X10*3/uL (0.0-0.2); Basophils Percent Auto 1.3 % (0-2); Eosinophils Absolute Auto 0.3 X10*3/uL (0.0-0.4); Eosinophils Percent Auto 4.9 % (0-4); Imm Gran Abs Auto 0.02 X10*3/uL (0.00-0.03); Imm Gran Pct Auto 0.3 % (0.0-0.4); Lymphocytes Absolute Auto 3.6 X10*3/uL (1.2-4.9); Lymphocytes Percent Auto 53.4 % (20-40); MANUAL DIFF FLAG NO; Mean Corpuscular Volume 94.3 fL (80-98); Mean Platelet Volume 8.1 fL (9.4-12.4); Monocytes Absolute Auto 0.6 X10*3/uL (0.1-1.2); Monocytes Percent Auto 8.9 % (2-11); Neutrophils Absolute Auto 2.1 X10*3/uL (2.0-8.3); Neutrophils Percent Auto 31.2 % (45-73); Platelet Count 269 X10*3/uL (160-400); Red Blood Count 4.24 X10*6/uL (4.60-5.80); Red Cell Distribution Width 13.7 % (11.0-16.0); White Blood Count 6.7 X10*3/uL (4.8-10.8)
--- NOTE | 2020-07-16 03:28 | PC.NURSE ---
Patient evaluated by Cecily from Care Team. Section 12. Inpatient bedsearch. Medication reconciliation completed. Repeat labs obtained as recommended by Poison Control. Patient took 5 Clonidine 0.1mg tablets at 19:30 on 07/15/20. EKG was previously obtained and reviewed by provider. SI with intent to overdose on Clonidine because I'll just slowly and peacefully but it'll make me forget and not care anymore eventually . Reported triggers was his partner dying appoximately 2 years ago. Sleeping at this time. Will continue to monitor.
[2020-07-16 03:35] LABS: Acetaminophen LAB < 1 mcg/mL (<30); Alanine Aminotransferase 6 U/L (0-40); Albumin Level 3.5 g/dL (3.5-5.0); Alkaline Phosphatase 102 U/L (39-117); Anion Gap 9 (12-20); Aspartate Amino Transferase 10 U/L (5-37); Bilirubin Direct < 0.2 mg/dL (0.0-0.5); Bilirubin Total 0.4 mg/dL (0.0-1.0); Blood Urea Nitrogen 16 mg/dL (9-16); Calcium 9.6 mg/dL (8.4-10.2); Carbon Dioxide 26 mmol/L (22-29); Chloride 106 mmol/L (96-108); Estimated Glomerular Filt Rate > 60; Glucose Random 105 mg/dL (60-115); Potassium 4.1 mmol/L (3.3-5.1); Salicylate < 5.0 mg/dL (15-30); Sodium 137 mmol/L (135-145); Total Protein 5.5 g/dL (6.5-8.0)
[2020-07-16 04:06] LABS: Ethanol < 10 mg/dL
--- NOTE | 2020-07-16 07:23 | PC.NURSE ---
pt report taken from russ rn pt appears to be resting in bed, rr even/unlabored, breakfast tray at bedside.
[2020-07-16] MEDS: lamoTRIgine 100 MG TABLET 200 MG PO ×2 (08:05→22:44)
[2020-07-16] MEDS: QUEtiapine Fumarate 100 MG TABLET PO ×3 (08:05→22:44)
[2020-07-16] MEDS: OLANZapine 5 MG TABLET PO (08:06)
[2020-07-16] MEDS: Methylphenidate HCl 10 MG TABLET 20 MG PO ×2 (08:06→14:23)
[2020-07-16] MEDS: Sertraline HCL 100 MG TABLET PO ×2 (08:06→08:09)
[2020-07-16] MEDS: Omeprazole 20 MG CAPSULE.DR PO (08:06)
[2020-07-16] MEDS: Atorvastatin Calcium 20 MG TABLET PO (08:10)
--- NOTE | 2020-07-16 10:17 | PC.NURSE ---
pt given paper and pencil to obtain phone numbers from pt phone. calm and cooperative.
[2020-07-16 10:44] VITALS: BP 118/84; PULSE 107; RESP 16; TEMP 36.1; O2SAT 96
[2020-07-16] MEDS: Nicotine 14 MG PATCH.TD24 TRANSDERMA (11:15)
--- NOTE | 2020-07-16 15:11 | PC.NURSE ---
report given to amanda banda
[2020-07-16 18:05] VITALS: BP 138/90; PULSE 65; TEMP 36.2
[2020-07-16] MEDS: Nicotine Polacrilex 2 MG GUM 4 MG BUCCAL (20:42)
[2020-07-16 22:44] VITALS: BP 141/87; PULSE 74
[2020-07-16] MEDS: OLANZapine 7.5 MG TABLET 15 MG PO (22:44)
[2020-07-16] MEDS: Prazosin HCL 1 MG CAPSULE 2 MG PO (22:44)
[2020-07-16] MEDS: traZODone HCL 100 MG TABLET PO (22:44)
[2020-07-17 00:53] VITALS: BP 148/97; PULSE 88
[2020-07-17] MEDS: cloNIDine HCL 0.1 MG TABLET PO ×3 (00:53→22:42)
--- NOTE | 2020-07-17 01:02 | PC.ADMIT ---
A white male pt aged 60 years was admitted to the [facility] as a CV at 1740 following referral from CARE team and [facility]. Pt has previous psychiatric admissions here and elsewhere in the area.Pt was admitted with a diagnosis of unspecified bipolar D/O following an impulsive, intentional overdose of 5 tablets of Clonidine 0.1mg after already having taken 2 tablets. Pt called for an ambulance after taking the medications. Pt reports difficulties in his relationship with his partner. Pt said they had gone through an eviction process and during this stressful time his partner threw away much of his clothing and possessions. Pt expressed he is worried about homelessness though he and his partner have a place to stay at the present time. Pt reports he has a housing court date in August. Pt reports the attempt took place on 07/15/20, that he did not write a note as it was an impulsive act. VARNER was positive for cocaine and marijuana; pt admits daily marijuana use but expressed surprise that he tested positive for cocaine and denied using. Pt has sobriety from alcohol since 1993. Pt has a history of bladder cancer that has resulted in occasional incontinence. Pt reports a slip and fall on ice in late February 2020 in which he fractured his right wrist requiring surgery. Pt reports taking all his medications as ordered. When asked what his primary goal was for discharge. pt expressed that he would like to find a better place to live. [id number] done and admitting orders obtained. Pt is resting in room on 15-minute safety checks at this time. Initial treatment plan is completed.
[2020-07-17 06:00] VITALS: BP 119/69; PULSE 66; RESP 16; TEMP 36.2; O2SAT 97
[2020-07-17] MEDS: Methylphenidate HCl 10 MG TABLET 40 MG PO (09:26)
[2020-07-17] MEDS: OLANZapine 5 MG TABLET PO (09:27)
[2020-07-17] MEDS: QUEtiapine Fumarate 100 MG TABLET PO ×3 (09:27→22:43)
[2020-07-17] MEDS: Omeprazole 20 MG CAPSULE.DR PO (09:27)
[2020-07-17] MEDS: lamoTRIgine 100 MG TABLET 200 MG PO ×2 (09:27→22:43)
[2020-07-17] MEDS: Sertraline HCL 100 MG TABLET PO (09:27)
[2020-07-17] MEDS: Nicotine 21 MG PATCH.TD24 TRANSDERMA (09:49)
[2020-07-17] MEDS: Nicotine Polacrilex 2 MG GUM 4 MG BUCCAL ×3 (09:49→23:16)
[2020-07-17 13:56] VITALS: BP 131/95; PULSE 106
[2020-07-17] MEDS: Methylphenidate HCl 5 MG TABLET 20 MG PO (14:03)
[2020-07-17] MEDS: lamiVUDine 150 MG TABLET 300 MG PO (15:48)
[2020-07-17] MEDS: Dolutegravir Sodium 50 MG TABLET PO (15:48)
--- NOTE | 2020-07-17 17:06 | P.HPPS_ITS ---
HPI Chief Complaint: acute psychosis Sources of Information: patient interviewed, chart reviewed and crisis/core team assessment reviewed HPI Subjective Notes: Pete Warning and 3 Day Narrative: Patient is a 60-year-old male with history of bipolar disorder, HIV and PTSD who presents after overdose of clonidine in face of relational strife. Patient reports that the past month has been hectic and that he and his partner have been arguing about accommodations; patient and his partner are about to move into a new place that is very small and has a jerky landlord which is stressful. Also last week he found out that his dad a year ago and that no one in the family told him. Patient says that his partner has been asking repeatedly when they are both able to move into the new place and that this has increased patient's stress. Patient said the other day he finally had enough, walked out of the house and took extra clonidine. Patient normally takes 2 tabs at night and so he took an additional 3 tabs. He said in that moment he wanted to . He also says he wanted his partner to get the hint and back off. However almost immediately he had a change of mind and ?hoped ? he could get over this and so called 911. Patient says that at that moment his SI fully resolved and has not come back. He denies any HI or AVH. Patient says that his medications are working well and he does not want any of them changed. He knows that he is on 2 antipsychotics which increases the risk of side effects but says he has been on the both for years and does not want any changes made since he is relatively stable. Patient reports history of trauma with PTSD symptoms of flashbacks and nightmares that are bothersome only about once a month. Patient says that he just needs a couple days rest and should be fine to discharge. Patient denies depression other than about 1 day a month for help be very depressed and will get out of bed but which resolved on its own and he is fine the next day. Past Psychiatric History: Medical Evaluation Reviewed: Yes [facility] Medical History (Updated 07/17/20 @ 17:26 by Hector Mcclendon) ADHD Anxiety Arthritis Asthma Back pain Bipolar 1 disorder Bipolar 1 disorder Bladder cancer CAD (coronary artery disease) COPD (chronic obstructive pulmonary disease) Depression GERD (gastroesophageal reflux disease) History of CVA (cerebrovascular accident) HIV (human immunodeficiency virus infection) HTN (hypertension) Hx of deep venous thrombosis Hx of traumatic brain injury Hypercholesterolemia Memory deficit Murmur Myocardial infarction Smoker Urge incontinence Surgical History History of nasal surgery History of total right hip replacement Hx of cystoscopy Diagnostics Vital Signs (24Hr): Vital Signs - 24 hr 07/16/20 18:05 07/16/20 22:44 07/17/20 00:53 Temperature 97.1 F Pulse Rate 65 74 88 Respiratory Rate Blood Pressure 138/90 H 141/87 H 148/97 H Pulse Oximetry 07/17/20 06:00 07/17/20 13:56 Temperature 97.1 F Pulse Rate 66 106 H Respiratory Rate 16 Blood Pressure 119/69 131/95 H Pulse Oximetry 97 Body Mass Index 22.4 Labs Results: 07/16/20 03:03 07/16/20 03:03 Labs: Laboratory Results - last 48 hr 07/15/20 07/15/20 07/15/20 20:23 20:23 21:01 WBC 7.2 RBC 4.19 L Hgb 13.9 L Hct 39.6 L MCV 94.5 MCH 33.2 H MCHC 35.1 RDW 13.5 Plt Count 272 MPV 8.2 L Immature Gran % (Auto) 0.3 Neut % (Auto) 41.0 L Lymph % (Auto) 44.8 H [place] % (Auto) 8.6 Eos % (Auto) 4.5 H Baso % (Auto) 0.8 Lymph # (Auto) 3.2 [place] # (Auto) 0.6 Eos # (Auto) 0.3 Baso # (Auto) 0.1 Abs Immat Gran (auto) 0.02 Absolute Neuts (auto) 2.9 Absolute Nucleated RBC 0.000 Nucleated RBC % (auto) 0.0 PT INR APTT Sodium Potassium Chloride Carbon Dioxide Anion Gap BUN Creatinine Estim Creat Clear Calc Estimated GFR Random Glucose Calcium Total Bilirubin Direct Bilirubin AST ALT Alkaline Phosphatase Total Protein Albumin Specimen Comment Urine Color YELLOW Urine Appearance CLEAR Urine pH 6.0 Ur Specific [place] >= 1.030 H Urine Protein 1+ H Urine Glucose (UA) NEG Urine Ketones NEG Urine Blood NEG Urine Nitrite NEG Ur Leukocyte Esterase NEG Urine RBC 0-2 Urine WBC 5-9 H Ur Squamous Epith Cells 1+ Urine Bacteria TRACE Salicylates Urine Opiates Screen Not Detected Acetaminophen Ur Barbiturates Screen Not Detected Ur Phencyclidine Scrn Not Detected Ur Amphetamines Screen Not Detected U Benzodiazepines Scrn Not Detected Urine Cocaine Screen POSITIVE H U Marijuana (THC) Screen POSITIVE H Ethyl Alcohol COVID-19 (BRIAN) COVID-19 Rayspan 07/15/20 07/15/20 07/15/20 21:01 21:01 21:01 WBC RBC Hgb Hct MCV MCH MCHC RDW Plt Count MPV Immature Gran % (Auto) Neut % (Auto) Lymph % (Auto) [place] % (Auto) Eos % (Auto) Baso % (Auto) Lymph # (Auto) [place] # (Auto) Eos # (Auto) Baso # (Auto) Abs Immat Gran (auto) Absolute Neuts (auto) Absolute Nucleated RBC Nucleated RBC % (auto) PT 11.5 INR 1.0 APTT 32.8 Sodium 137 Potassium 4.0 Chloride 106 Carbon Dioxide 23 Anion Gap 12 BUN 16 Creatinine 0.91 Estim Creat Clear Calc 76.6 Estimated GFR > 60 Random Glucose 123 H Calcium 9.6 Total Bilirubin 0.4 Direct Bilirubin AST 10 ALT 6 Alkaline Phosphatase 107 Total Protein 5.7 L Albumin 3.6 Specimen Comment Urine Color Urine Appearance Urine pH Ur Specific [place] Urine Protein Urine Glucose (UA) Urine Ketones Urine Blood Urine Nitrite Ur Leukocyte Esterase Urine RBC Urine WBC Ur Squamous Epith Cells Urine Bacteria Salicylates < 5.0 L Urine Opiates Screen Acetaminophen < 1 Ur Barbiturates Screen Ur Phencyclidine Scrn Ur Amphetamines Screen U Benzodiazepines Scrn Urine Cocaine Screen U Marijuana (THC) Screen Ethyl Alcohol < 10 COVID-19 (BRIAN) COVID-19 Rayspan 07/15/20 07/15/20 07/16/20 21:01 21:01 02:28 WBC RBC Hgb Hct MCV MCH MCHC RDW Plt Count MPV Immature Gran % (Auto) Neut % (Auto) Lymph % (Auto) [place] % (Auto) Eos % (Auto) Baso % (Auto) Lymph # (Auto) [place] # (Auto) Eos # (Auto) Baso # (Auto) Abs Immat Gran (auto) Absolute Neuts (auto) Absolute Nucleated RBC Nucleated RBC % (auto) PT INR APTT Sodium Potassium Chloride Carbon Dioxide Anion Gap BUN Creatinine Estim Creat Clear Calc Estimated GFR Random Glucose Calcium Total Bilirubin 0.4 Direct Bilirubin < 0.2 AST 11 ALT 7 Alkaline Phosphatase 107 Total Protein 5.7 L Albumin 3.6 Specimen Comment DELAY Urine Color Urine Appearance Urine pH Ur Specific [place] Urine Protein Urine Glucose (UA) Urine Ketones Urine Blood Urine Nitrite Ur Leukocyte Esterase Urine RBC Urine WBC Ur Squamous Epith Cells Urine Bacteria Salicylates Urine Opiates Screen Acetaminophen Ur Barbiturates Screen Ur Phencyclidine Scrn Ur Amphetamines Screen U Benzodiazepines Scrn Urine Cocaine Screen U Marijuana (THC) Screen Ethyl Alcohol COVID-19 (BRINA) Negative COVID-19 Clin Com See Note 07/16/20 07/16/20 07/16/20 03:03 03:03 03:03 WBC 6.7 RBC 4.24 L Hgb 14.0 Hct 40.0 L MCV 94.3 MCH 33.0 MCHC 35.0 RDW 13.7 Plt Count 269 MPV 8.1 L Immature Gran % (Auto) 0.3 Neut % (Auto) 31.2 L Lymph % (Auto) 53.4 H [place] % (Auto) 8.9 Eos % (Auto) 4.9 H Baso % (Auto) 1.3 Lymph # (Auto) 3.6 [place] # (Auto) 0.6 Eos # (Auto) 0.3 Baso # (Auto) 0.1 Abs Immat Gran (auto) 0.02 Absolute Neuts (auto) 2.1 Absolute Nucleated RBC 0.000 Nucleated RBC % (auto) 0.0 PT INR APTT Sodium 137 Potassium 4.1 Chloride 106 Carbon Dioxide 26 Anion Gap 9 L BUN 16 Creatinine 0.84 Estim Creat Clear Calc 83.0 Estimated GFR > 60 Random Glucose 105 Calcium 9.6 Total Bilirubin 0.4 Direct Bilirubin < 0.2 AST 10 ALT 6 Alkaline Phosphatase 102 Total Protein 5.5 L Albumin 3.5 Specimen Comment Urine Color Urine Appearance Urine pH Ur Specific [place] Urine Protein Urine Glucose (UA) Urine Ketones Urine Blood Urine Nitrite Ur Leukocyte Esterase Urine RBC Urine WBC Ur Squamous Epith Cells Urine Bacteria Salicylates < 5.0 L Urine Opiates Screen Acetaminophen < 1 Ur Barbiturates Screen Ur Phencyclidine Scrn Ur Amphetamines Screen U Benzodiazepines Scrn Urine Cocaine Screen U Marijuana (THC) Screen Ethyl Alcohol < 10 COVID-19 (BRIAN) COVID-19 Clin Com Meds/Allergies Meds Home Medications Al Hydroxide/Mg Hydroxide (Magnesium Hydrox/Alum Hydrox 30 Ml Oral.Susp) 30 ml PO Q6H PRN PRN Reason: Heartburn/Nausea Atorvastatin Calcium (Atorvastatin Calcium 20 Mg Tablet) 20 mg PO DAILY [facility] Last Admin: 07/17/20 10:07 Dose: Not Given Documented by: Clonidine HCl (Clonidine Hcl 0.1 Mg Tablet) 0.1 mg PO QID PRN; Protocol PRN Reason: anxiety Last Admin: 07/17/20 13:56 Dose: 0.1 mg Documented by: Dolutegravir Sodium (Dolutegravir Sodium 50 Mg Tablet) 50 mg PO DAILY [facility] Last Admin: 07/17/20 15:48 Dose: 50 mg Documented by: Lamivudine (Lamivudine 150 Mg Tablet) 300 mg PO DAILY [facility] Last Admin: 07/17/20 15:48 Dose: 300 mg Documented by: Lamotrigine (Lamotrigine 100 Mg Tablet) 200 mg PO BID [facility] Last Admin: 07/17/20 09:27 Dose: 200 mg Documented by: Magnesium Hydroxide (Milk Of Magnesia 30 Ml Oral.Susp) 30 ml PO DAILY PRN PRN Reason: Constipation Methylphenidate HCl (Methylphenidate Hcl 10 Mg Tablet) 40 mg PO DAILY [facility] Last Admin: 07/17/20 09:26 Dose: 40 mg Documented by: Methylphenidate HCl (Methylphenidate Hcl 10 Mg Tablet) 20 mg PO DAILY@1330 [facility] Nicotine (Nicotine 21 Mg Patch.Td24) 21 mg TRANSDERMA DAILY PRN PRN Reason: smoking cessation Last Admin: 07/17/20 09:49 Dose: 21 mg Documented by: Nicotine Polacrilex (Nicotine Polacrilex 2 Mg Gum) 4 mg BUCCAL Q2H PRN PRN Reason: Nicotine Cravings Last Admin: 07/17/20 14:50 Dose: 4 mg Documented by: Non-Formulary Medication (Fesoterodine [Toviaz]) 1 tab PO DAILY [facility] Non-Formulary Medication (Trimethoprim) 1 tab PO DAILY [facility] Olanzapine (Olanzapine 5 Mg Tablet) 5 mg PO DAILY@0900 [facility] Last Admin: 07/17/20 09:27 Dose: 5 mg Documented by: Olanzapine (Olanzapine 7.5 Mg Tablet) 15 mg PO BEDTIME [facility] Last Admin: 07/16/20 22:44 Dose: 15 mg Documented by: Omeprazole (Omeprazole 20 Mg Capsule.Dr) 20 mg PO DAILY [facility] Last Admin: 07/17/20 09:27 Dose: 20 mg Documented by: Oxybutynin Chloride (Oxybutynin Chloride Er 5 Mg Tab.Er.24) 5 mg PO DAILY [facility] Last Admin: 07/17/20 09:26 Dose: 5 mg Documented by: Prazosin HCl (Prazosin Hcl 1 Mg Capsule) 2 mg PO BEDTIME [facility]; Protocol Last Admin: 07/16/20 22:44 Dose: 2 mg Documented by: Quetiapine Fumarate (Quetiapine Fumarate 100 Mg Tablet) 100 mg PO TID [facility] Last Admin: 07/17/20 14:18 Dose: 100 mg Documented by: Sertraline HCl (Sertraline Hcl 100 Mg Tablet) 100 mg PO DAILY [facility] Last Admin: 07/17/20 09:27 Dose: 100 mg Documented by: Trazodone HCl (Trazodone Hcl 100 Mg Tablet) 100 mg PO BEDTIME [facility] Last Admin: 07/16/20 22:44 Dose: 100 mg Documented by: Allergies Allergies Allergy/AdvReac Type Severity Reaction Status Date / Time bee pollen [BEE STINGS] Allergy Severe ANAPHYLAXIS Verified 07/16/20 00:00 Mental Status Exam Mental Status Exam Narrative: Pt is alert and oriented; behavior is cooperative, friendly and calm; patient is not in distress; dressed in casual attire with unkempt hair but adequate hygiene; mood is described as good and affect congruent; eye contact appropriate; Speech is normal rate, volume and prosody and not pressured; no psychomotor agitation/retardation present; thought process is organized and goal directed but can be very circumstantial. Thought content is on tx; otherwise pertinent to relevant topics and without any delusional content, paranoid ideations or grandiosity; denies any SI/HI. There is no evidence of perceptual disturbance. Patients insight and judgment appear intact. Assessment & Plan Assessment & Plan (1) Adjustment disorder with mixed disturbance of emotions and conduct in remission: Status: Acute Code(s): F43.25 - Adjustment disorder with mixed disturbance of emotions and conduct (2) Overactive bladder: Status: Acute Code(s): N32.81 - Overactive bladder (3) Bladder cancer: Status: Acute Code(s): C67.9 - Malignant neoplasm of bladder, unspecified (4) Bipolar 1 disorder: Status: Inactive Code(s): F31.9 - Bipolar disorder, unspecified Assessment and Plan: Impression: Patient is a 60-year-old male with history of PTSD, HIV, depression, bipolar disorder. Patient presents for overdose on clonidine with low lethality, in the face of relational strife. Patient reports that all SI has resolved. He does not want any medication changes but feels like he does need a couple days to rest and then will be ready for discharge. [employer] reviewed patient's history of manic episode and he said he had 1 that lasted for 2 days about 6 months ago. Otherwise he has not had a full-blown manic episode several years Plan: Patient is on CV Q 15 minutes checks Continue patient's home meds as he has been on them for ?years? and does not want any med changes, feeling they have helped him remain stable Patient educated on: diagnosis and medication risk/benefits Informed Consent: understands Reason for continued inpatient stay Substantial Risk for: rapid decompensation
[2020-07-17 22:35] VITALS: BP 159/93; PULSE 66; TEMP 36.8
[2020-07-17 22:40] VITALS: BP 159/93; PULSE 66
[2020-07-17] MEDS: Prazosin HCL 1 MG CAPSULE 2 MG PO (22:40)
[2020-07-17 22:42] VITALS: BP 159/93; PULSE 66
[2020-07-17] MEDS: OLANZapine 7.5 MG TABLET 15 MG PO (22:44)
[2020-07-17] MEDS: traZODone HCL 100 MG TABLET PO (22:44)
[2020-07-18 09:00] VITALS: BP 127/81; PULSE 100; RESP 20; TEMP 36.4; O2SAT 95
[2020-07-18] MEDS: lamiVUDine 150 MG TABLET 300 MG PO (09:13)
[2020-07-18] MEDS: lamoTRIgine 100 MG TABLET 200 MG PO ×2 (09:13→21:24)
[2020-07-18] MEDS: Dolutegravir Sodium 50 MG TABLET PO (09:13)
[2020-07-18] MEDS: Methylphenidate HCl 10 MG TABLET 40 MG PO (09:14)
[2020-07-18] MEDS: OLANZapine 5 MG TABLET PO (09:15)
[2020-07-18] MEDS: Omeprazole 20 MG CAPSULE.DR PO (09:15)
[2020-07-18] MEDS: QUEtiapine Fumarate 100 MG TABLET PO ×3 (09:17→21:24)
[2020-07-18] MEDS: Sertraline HCL 100 MG TABLET PO (09:19)
[2020-07-18] MEDS: Nicotine 21 MG PATCH.TD24 TRANSDERMA (09:22)
[2020-07-18] MEDS: Nicotine Polacrilex 2 MG GUM 4 MG BUCCAL ×3 (09:23→20:02)
--- NOTE | 2020-07-18 10:09 | P.PNPSI_ITS ---
Subjective Subjective Date of Service: 07/18/20 Reason For Visit: acute psychosis Interim History: Patient says he is feeling better. Denies any SI or HI. Is working things out with his partner and feels like he is approaching ready to discharge. Patient is sleeping fine and has no complaints. Mental Status Exam Mental Status Exam Narrative: Pt is alert and oriented; behavior is cooperative, friendly and calm; patient is not in distress; dressed in casual attire with unkempt hair but adequate hygiene; mood is described as good and affect congruent; eye contact appropriate; Speech is normal rate, volume and prosody and not pressured; no psychomotor agitation/retardation present; thought process is organized and goal directed but can be very circumstantial. Thought content is on tx; otherwise pertinent to relevant topics and without any delusional content, paranoid ideations or grandiosity; denies any SI/HI. There is no evidence of perceptual disturbance. Patients insight and judgment appear intact. Diagnostics Vital Signs (24Hr): Vital Signs - 24 hr 07/17/20 13:56 07/17/20 22:35 07/17/20 22:40 Temperature 98.2 F Pulse Rate 106 H 66 66 Blood Pressure 131/95 H 159/93 H 159/93 H 07/17/20 22:42 Temperature Pulse Rate 66 Blood Pressure 159/93 H Body Mass Index 22.4 Labs Results: 07/16/20 03:03 07/16/20 03:03 Medications Medications Current Medications Generic Name Dose Route Start Last Admin Trade Name Freq PRN Reason Stop Dose Admin Al Hydroxide/Mg Hydroxide 30 ml 07/16/20 17:44 Magnesium Hydrox/Alum Hydrox 30 Ml Oral.Susp PO Q6H PRN Heartburn/Nausea Atorvastatin Calcium 20 mg 07/16/20 09:00 07/18/20 09:11 Atorvastatin Calcium 20 Mg Tablet PO Not Given DAILY JENNIFER Clonidine HCl 0.1 mg 07/16/20 02:53 07/17/20 22:42 Clonidine Hcl 0.1 Mg Tablet PO 0.1 mg QID PRN Administration anxiety Protocol Dolutegravir Sodium 50 mg 07/17/20 14:30 07/18/20 09:13 Dolutegravir Sodium 50 Mg Tablet PO 50 mg DAILY JENNIFER Administration Lamivudine 300 mg 07/17/20 14:29 07/18/20 09:13 Lamivudine 150 Mg Tablet PO 300 mg DAILY JENNIFER Administration Lamotrigine 200 mg 07/16/20 03:00 07/18/20 09:13 Lamotrigine 100 Mg Tablet PO 200 mg BID JENNIFER Administration Magnesium Hydroxide 30 ml 07/16/20 17:44 Milk Of Magnesia 30 Ml Oral.Susp PO DAILY PRN Constipation Methylphenidate HCl 40 mg 07/17/20 09:00 07/18/20 09:14 Methylphenidate Hcl 10 Mg Tablet PO 40 mg DAILY JENNIFER Administration Methylphenidate HCl 20 mg 07/18/20 13:30 Methylphenidate Hcl 10 Mg Tablet PO DAILY@1330 JENNIFER Nicotine 21 mg 07/16/20 19:59 07/18/20 09:22 Nicotine 21 Mg Patch.Td24 TRANSDERMA 21 mg DAILY PRN Administration smoking cessation Nicotine Polacrilex 4 mg 07/16/20 17:44 07/18/20 09:23 Nicotine Polacrilex 2 Mg Gum BUCCAL 4 mg Q2H PRN Administration Nicotine Cravings Non-Formulary Medication 1 tab 07/16/20 09:00 Fesoterodine [Toviaz] PO DAILY JENNIFER Non-Formulary Medication 1 tab 07/16/20 09:00 Trimethoprim PO DAILY JENNIFER Olanzapine 5 mg 07/16/20 09:00 07/18/20 09:15 Olanzapine 5 Mg Tablet PO 5 mg DAILY@0900 JENNIFER Administration Olanzapine 15 mg 07/16/20 21:00 07/17/20 22:44 Olanzapine 7.5 Mg Tablet PO 15 mg BEDTIME JENNIFER Administration Omeprazole 20 mg 07/16/20 09:00 07/18/20 09:15 Omeprazole 20 Mg Capsule.Dr PO 20 mg DAILY JENNIFER Administration Oxybutynin Chloride 5 mg 07/16/20 09:00 07/18/20 09:15 Oxybutynin Chloride Er 5 Mg Tab.Er.24 PO 5 mg DAILY JENNIFER Administration Prazosin HCl 2 mg 07/16/20 03:00 07/17/20 22:40 Prazosin Hcl 1 Mg Capsule PO 2 mg BEDTIME JENNIFER Administration Protocol Quetiapine Fumarate 100 mg 07/16/20 03:00 07/18/20 09:17 Quetiapine Fumarate 100 Mg Tablet PO 100 mg TID JENNIFER Administration Sertraline HCl 100 mg 07/16/20 09:00 07/18/20 09:19 Sertraline Hcl 100 Mg Tablet PO 100 mg DAILY JENNIFER Administration Trazodone HCl 100 mg 07/16/20 03:00 06/08/21 22:44 Trazodone Hcl 100 Mg Tablet PO 100 mg BEDTIME JENNIFER Administration Allergies Allergies Allergy/AdvReac Type Severity Reaction Status Date / Time bee pollen [BEE STINGS] Allergy Severe ANAPHYLAXIS Verified 07/16/20 00:00 Assessment & Plan Assessment & Plan (1) Adjustment disorder with mixed disturbance of emotions and conduct in remission: Status: Acute Code(s): F43.25 - Adjustment disorder with mixed disturbance of emotions and conduct (2) Overactive bladder: Status: Acute Code(s): N32.81 - Overactive bladder (3) Bladder cancer: Status: Acute Code(s): C67.9 - Malignant neoplasm of bladder, unspecified (4) Bipolar 1 disorder: Status: Inactive Code(s): F31.9 - Bipolar disorder, unspecified Assessment and Plan: Impression: Patient is a 60-year-old male with history of PTSD, HIV, depression, bipolar disorder. Patient presents for overdose on clonidine with low lethality, in the face of relational strife. Patient reports that all SI has resolved. He does not want any medication changes but feels like he does need a couple days to rest and then will be ready for discharge. Lens Grinding Machine Operator reviewed patient's history of manic episode and he said he had 1 that lasted for 2 days about 6 months ago. Otherwise he has not had a full-blown manic episode several years Patient is stabilizing. However given his recent suicide attempt and and strug gles with emotional reactivity, proposal writer feels patient should remain on the unit another day or so to demonstrate stability. Plan: Patient is on CV Q 15 minutes checks Continue patient's home meds as he has been on them for ?years? and does not want any med changes, feeling they have helped him remain stable Greater than 50% of the session was spent on counseling and/or coordination of care Reason for contiued inpatient stay Substantial Risk for: harm to self and rapid decompensation
[2020-07-18] MEDS: Methylphenidate HCl 10 MG TABLET 20 MG PO (13:34)
[2020-07-18 14:55] VITALS: BP 108/81; PULSE 101
[2020-07-18] MEDS: cloNIDine HCL 0.1 MG TABLET PO ×2 (14:55→21:33)
[2020-07-18 18:00] VITALS: PULSE 78; TEMP 36.3
[2020-07-18 21:23] VITALS: BP 141/76; PULSE 84
[2020-07-18] MEDS: OLANZapine 7.5 MG TABLET 15 MG PO (21:23)
[2020-07-18] MEDS: Prazosin HCL 1 MG CAPSULE 2 MG PO (21:23)
[2020-07-18] MEDS: traZODone HCL 100 MG TABLET PO (21:25)
[2020-07-18 21:33] VITALS: BP 141/76; PULSE 84
[2020-07-18] MEDS: Ibuprofen 600 MG TABLET PO (22:42)
[2020-07-19 06:00] VITALS: BP 139/90; PULSE 65; RESP 16; TEMP 36.3; O2SAT 97
[2020-07-19] MEDS: Dolutegravir Sodium 50 MG TABLET PO (09:06)
[2020-07-19] MEDS: Methylphenidate HCl 10 MG TABLET 40 MG PO (09:08)
[2020-07-19] MEDS: lamiVUDine 150 MG TABLET 300 MG PO (09:09)
[2020-07-19] MEDS: OLANZapine 5 MG TABLET PO (09:10)
[2020-07-19] MEDS: Omeprazole 20 MG CAPSULE.DR PO (09:11)
[2020-07-19] MEDS: lamoTRIgine 100 MG TABLET 200 MG PO (09:11)
[2020-07-19] MEDS: Sertraline HCL 100 MG TABLET PO (09:13)
[2020-07-19] MEDS: QUEtiapine Fumarate 100 MG TABLET PO (09:13)
[2020-07-19] MEDS: Nicotine 21 MG PATCH.TD24 TRANSDERMA (09:15)
[2020-07-19] MEDS: Nicotine Polacrilex 2 MG GUM 4 MG BUCCAL ×2 (09:15→13:20)
--- NOTE | 2020-07-19 12:35 | PM.PSYDC ---
DS: Providers Provider Date of Service: 07/19/20 Date of admission: 07/16/20 16:33 Date of discharge: 07/19/20 Primary care physician: Mae Ross MD Attending physician on admission: Hector Mcclendon Attending physician on discharge: Hector Mcclendon DS: Diagnosis Discharge Diagnosis (1) Adjustment disorder with mixed disturbance of emotions and conduct in remission: Status: Resolved (2) Bipolar 1 disorder: Status: Chronic (3) Chronic post-traumatic stress disorder (PTSD): Status: Chronic DS: Medications Discharge Medications Home Medications: Home Medications Medication Instructions Recorded Confirmed Dovato 1 tab PO DAILY 07/16/20 07/16/20 Toviaz 1 tab PO DAILY 07/16/20 07/16/20 atorvastatin 1 tab PO DAILY 07/16/20 07/16/20 esomeprazole magnesium 1 cap PO DAILY 07/16/20 07/16/20 oxybutynin chloride 1 tab PO DAILY 07/16/20 07/16/20 trimethoprim 1 tab PO DAILY 07/16/20 07/16/20 Previous Rx's Medication Instructions Recorded clonidine HCl 0.1 mg PO QID PRN 30 Days #90 tab 07/19/20 lamotrigine 200 mg PO BID 30 Days #60 tab 07/19/20 methylphenidate HCl 20 mg PO TID 4 Days #12 tab 07/19/20 nicotine (polacrilex) 4 mg BUCCAL Q2H PRN 30 Days #50 ea 07/19/20 olanzapine 5 mg PO QAM 30 Days #30 tab 07/19/20 olanzapine 15 mg PO BEDTIME 30 Days #30 tab 07/19/20 prazosin 2 mg PO BEDTIME 30 Days #30 cap 07/19/20 quetiapine 100 mg PO TID 30 Days #90 tab 07/19/20 sertraline 100 mg PO DAILY 30 Days #30 tab 07/19/20 trazodone 100 mg PO BEDTIME 30 Days #30 tab 07/19/20 Discharge Plan Discharge Patient Disposition: Home, Self-Care Discharge Diagnosis: Bipolar disorder, type II, currently in full remission; adjustment disorder with mixed disturbance emotion/conduct, in full remission Referrals: Mae Ross MD [Primary Care Provider] - 1 Week Discharge Medications: New nicotine (polacrilex) 2 mg Gum 4 mg buccal Q2H PRN (Reason: Nicotine Cravings) 30 Days Qty: 50 RF: 0 Continued atorvastatin 20 mg tablet 1 tab PO DAILY RF: 0 trimethoprim 100 mg tablet 1 tab PO DAILY RF: 0 esomeprazole magnesium 40 mg capsule,delayed release(DR/EC) 1 cap PO DAILY RF: 0 oxybutynin chloride 5 mg tablet extended release 24hr 1 tab PO DAILY RF: 0 Toviaz 4 mg tablet extended release 24 hr 1 tab PO DAILY RF: 0 Dovato 50-300 mg tablet 1 tab PO DAILY RF: 0 Changed clonidine HCl 0.1 mg tablet 0.1 mg PO QID PRN (Reason: anxiety) 30 Days Qty: 90 RF: 1 lamotrigine 200 mg tablet 200 mg PO BID 30 Days Qty: 60 RF: 1 methylphenidate HCl 20 mg tablet 20 mg PO TID 4 Days Qty: 12 RF: 0 sertraline 100 mg tablet 100 mg PO DAILY 30 Days Qty: 30 RF: 1 olanzapine 5 mg tablet 5 mg PO QAM 30 Days Qty: 30 RF: 1 quetiapine 100 mg tablet 100 mg PO TID 30 Days Qty: 90 RF: 1 trazodone 100 mg tablet 100 mg PO BEDTIME 30 Days Qty: 30 RF: 1 olanzapine 15 mg tablet 15 mg PO BEDTIME 30 Days Qty: 30 RF: 1 prazosin 2 mg capsule 2 mg PO BEDTIME 30 Days Qty: 30 RF: 1 Discharge Orders: Discharge Order (Routine); Ordered 07/19/20 Ordered By: Hector Mcclendon Diet: regular diet Activity on Discharge: As tolerated Stand Alone Forms: Patient Portal Discharge page Care Plan Goals: Maintain mood and safe behaviors Take medications as prescribed Practice coping skills Continue with outpatient providers and reach out to them as needed Health Concerns: Mood instability and behaviors Plan of Treatment: Follow up with your psychiatric provider regarding above concern Take medications as prescribed Assessment: Risk assessment at time of discharge: Patient has been observed closely by nursing and unit staff throughout admission; patient has not engaged in any behaviors that suggest dangerousness to self or others and has demonstrated appropriate behaviors and impulse control. Patient was interviewed prior to discharge and found to be fully oriented and without any SI or HI. Patient has insight and demonstrates good judgment in terms of wanting to pursue treatment. Patient is not in imminent risk of harm to self or others and has a safety plan that includes presenting to the closest ER or calling 911 if feeling unsafe. Mental Status Exam Mental Status Exam Narrative: Pt is alert and oriented; behavior is cooperative, friendly and calm; patient is not in distress; dressed in casual attire with unkempt hair but adequate hygiene; mood is described as good and affect congruent; eye contact appropriate; Speech is normal rate, volume and prosody and not pressured; no psychomotor agitation/retardation present; thought process is organized and goal directed but can be very circumstantial. Thought content is on tx; otherwise pertinent to relevant topics and without any delusional content, paranoid ideations or grandiosity; denies any SI/HI. There is no evidence of perceptual disturbance. Patients insight and judgment appear intact. Data Data Completed and Pending Completed studies during hospitalization [Text1]: 07/15/20 07/15/20 07/15/20 20:23 20:23 21:01 WBC 7.2 RBC 4.19 L Hgb 13.9 L Hct 39.6 L MCV 94.5 MCH 33.2 H MCHC 35.1 RDW 13.5 Plt Count 272 MPV 8.2 L Immature Gran % (Auto) 0.3 Neut % (Auto) 41.0 L Lymph % (Auto) 44.8 H [place] % (Auto) 8.6 Eos % (Auto) 4.5 H Baso % (Auto) 0.8 Lymph # (Auto) 3.2 [place] # (Auto) 0.6 Eos # (Auto) 0.3 Baso # (Auto) 0.1 Abs Immat Gran (auto) 0.02 Absolute Neuts (auto) 2.9 Absolute Nucleated RBC 0.000 Nucleated RBC % (auto) 0.0 PT INR APTT Sodium Potassium Chloride Carbon Dioxide Anion Gap BUN Creatinine Estim Creat Clear Calc Estimated GFR Random Glucose Calcium Total Bilirubin Direct Bilirubin AST ALT Alkaline Phosphatase Total Protein Albumin Specimen Comment Urine Color YELLOW Urine Appearance CLEAR Urine pH 6.0 Ur Specific [place] >= 1.030 H Urine Protein 1+ H Urine Glucose (UA) NEG Urine Ketones NEG Urine Blood NEG Urine Nitrite NEG Ur Leukocyte Esterase NEG Urine RBC 0-2 Urine WBC 5-9 H Ur Squamous Epith Cells 1+ Urine Bacteria TRACE Salicylates Urine Opiates Screen Not Detected Acetaminophen Ur Barbiturates Screen Not Detected Ur Phencyclidine Scrn Not Detected Ur Amphetamines Screen Not Detected U Benzodiazepines Scrn Not Detected Urine Cocaine Screen POSITIVE H U Marijuana (THC) Screen POSITIVE H Ethyl Alcohol COVID-19 (BRIAN) COVID-19 Call Loop 07/15/20 07/15/20 07/15/20 21:01 21:01 21:01 WBC RBC Hgb Hct MCV MCH MCHC RDW Plt Count MPV Immature Gran % (Auto) Neut % (Auto) Lymph % (Auto) [place] % (Auto) Eos % (Auto) Baso % (Auto) Lymph # (Auto) [place] # (Auto) Eos # (Auto) Baso # (Auto) Abs Immat Gran (auto) Absolute Neuts (auto) Absolute Nucleated RBC Nucleated RBC % (auto) PT 11.5 INR 1.0 APTT 32.8 Sodium 137 Potassium 4.0 Chloride 106 Carbon Dioxide 23 Anion Gap 12 BUN 16 Creatinine 0.91 Estim Creat Clear Calc 76.6 Estimated GFR > 60 Random Glucose 123 H Calcium 9.6 Total Bilirubin 0.4 Direct Bilirubin AST 10 ALT 6 Alkaline Phosphatase 107 Total Protein 5.7 L Albumin 3.6 Specimen Comment Urine Color Urine Appearance Urine pH Ur Specific [place] Urine Protein Urine Glucose (UA) Urine Ketones Urine Blood Urine Nitrite Ur Leukocyte Esterase Urine RBC Urine WBC Ur Squamous Epith Cells Urine Bacteria Salicylates < 5.0 L Urine Opiates Screen Acetaminophen < 1 Ur Barbiturates Screen Ur Phencyclidine Scrn Ur Amphetamines Screen U Benzodiazepines Scrn Urine Cocaine Screen U Marijuana (THC) Screen Ethyl Alcohol < 10 COVID-19 (BRIAN) COVID-19 Call Loop 07/15/20 07/15/20 07/16/20 21:01 21:01 02:28 WBC RBC Hgb Hct MCV MCH MCHC RDW Plt Count MPV Immature Gran % (Auto) Neut % (Auto) Lymph % (Auto) [place] % (Auto) Eos % (Auto) Baso % (Auto) Lymph # (Auto) [place] # (Auto) Eos # (Auto) Baso # (Auto) Abs Immat Gran (auto) Absolute Neuts (auto) Absolute Nucleated RBC Nucleated RBC % (auto) PT INR APTT Sodium Potassium Chloride Carbon Dioxide Anion Gap BUN Creatinine Estim Creat Clear Calc Estimated GFR Random Glucose Calcium Total Bilirubin 0.4 Direct Bilirubin < 0.2 AST 11 ALT 7 Alkaline Phosphatase 107 Total Protein 5.7 L Albumin 3.6 Specimen Comment DELAY Urine Color Urine Appearance Urine pH Ur Specific [place] Urine Protein Urine Glucose (UA) Urine Ketones Urine Blood Urine Nitrite Ur Leukocyte Esterase Urine RBC Urine WBC Ur Squamous Epith Cells Urine Bacteria Salicylates Urine Opiates Screen Acetaminophen Ur Barbiturates Screen Ur Phencyclidine Scrn Ur Amphetamines Screen U Benzodiazepines Scrn Urine Cocaine Screen U Marijuana (THC) Screen Ethyl Alcohol COVID-19 (BRIAN) Negative COVID-19 Clin Com See Note 07/16/20 07/16/20 07/16/20 03:03 03:03 03:03 WBC 6.7 RBC 4.24 L Hgb 14.0 Hct 40.0 L MCV 94.3 MCH 33.0 MCHC 35.0 RDW 13.7 Plt Count 269 MPV 8.1 L Immature Gran % (Auto) 0.3 Neut % (Auto) 31.2 L Lymph % (Auto) 53.4 H [place] % (Auto) 8.9 Eos % (Auto) 4.9 H Baso % (Auto) 1.3 Lymph # (Auto) 3.6 [place] # (Auto) 0.6 Eos # (Auto) 0.3 Baso # (Auto) 0.1 Abs Immat Gran (auto) 0.02 Absolute Neuts (auto) 2.1 Absolute Nucleated RBC 0.000 Nucleated RBC % (auto) 0.0 PT INR APTT Sodium 137 Potassium 4.1 Chloride 106 Carbon Dioxide 26 Anion Gap 9 L BUN 16 Creatinine 0.84 Estim Creat Clear Calc 83.0 Estimated GFR > 60 Random Glucose 105 Calcium 9.6 Total Bilirubin 0.4 Direct Bilirubin < 0.2 AST 10 ALT 6 Alkaline Phosphatase 102 Total Protein 5.5 L Albumin 3.5 Specimen Comment Urine Color Urine Appearance Urine pH Ur Specific [place] Urine Protein Urine Glucose (UA) Urine Ketones Urine Blood Urine Nitrite Ur Leukocyte Esterase Urine RBC Urine WBC Ur Squamous Epith Cells Urine Bacteria Salicylates < 5.0 L Urine Opiates Screen Acetaminophen < 1 Ur Barbiturates Screen Ur Phencyclidine Scrn Ur Amphetamines Screen U Benzodiazepines Scrn Urine Cocaine Screen U Marijuana (THC) Screen Ethyl Alcohol < 10 COVID-19 (BRIAN) COVID-19 Clin Com 07/15/20 20:50 Urine clean catch - Clean Catch Midstream Urine Culture - Final DS: Summary Hospital Course Hospital Course: Patient is a 60-year-old male with history of PTSD, HIV, depression, bipolar disorder, who presents for overdose on clonidine with low lethality (and high rescue factor), in the face of relational strife. Patient normally takes to clonidine tabs at bedtime; following an argument, he took an extra 3 tabs and then immediately called 911. Admitted on CV. Upon admission patient reported that all SI had resolved. He he said in the moment when he took the extra clonidine tabs he did feel suicidal, however he otherwise denies any recent history of depression other than chronically feeling down for 1-2 days per month. He also denied any recent manic symptoms. Patient felt that he was getting close back to his normal self, however he felt he could use a few days to continue to calm down. Patient did not want any medication changes Saint he had been on this regimen for years and that it works and wanted to leave it as it is. Professor Of Industrial Technology discussed the increased risk of being on 2 antipsychotics at the same time, but patient said he fully understands the risks and side effects of his regimen; in an appropriate and calm way he said he did not need commercial lines underwriter to explain risks/side effects of his medications any further as he is a drug counselor and knows them well. He says this combination of medications is what has worked best for him, including to be on both Seroquel and Zyprexa and reiterated that he wants to remain on current regimen. Patient continued to deny any suicidal or homicidal ideation during admission and demonstrated appropriate behaviors and impulse control on the unit. He reported sleeping well, eating well and feeling back to his normal self, ready for discharge. Patient said that he has refills of all his medications; since patients next psychiatric appointment is in over a month, commercial lines underwriter refilled psychiatric medications to ensure the patient does not run out. Patient remained in good mood, with bright affect, getting along well with staff and peers. He was future oriented and reported he and his partner had resolved their argument and is ready to go home. Patient is not in imminent risk for harm to self or others and his request for discharge honored. Time Spent with Patient Time attestation: Total time spent providing and/or coordinating discharge services:
[2020-07-19] MEDS: Methylphenidate HCl 10 MG TABLET 20 MG PO (13:04)
== END 2020-07-19 14:33 | disposition home or self-care (01) | DRG 885 ==
LOC: HO.ED 23:33 → HO.PM5 07-16 16:42
PROVIDERS: Physician Assistant; Admitting Provider Psychiatry & Neurology Psychiatry; Emergency Provider Student in an Organized Health Care Education/Training Program; PCP Internal Medicine; Visit Provider Psychiatry & Neurology Psychiatry
DX: F31.81 Bipolar II disorder (principal); R45.851 Suicidal ideations; F43.25 Adjustment disorder with mixed disturbance of emotions and conduct; F17.210 Nicotine dependence, cigarettes, uncomplicated; Z71.6 Tobacco abuse counseling; F43.10 Post-traumatic stress disorder, unspecified; Z21 Asymptomatic human immunodeficiency virus [HIV] infection status; N32.81 Overactive bladder; C67.9 Malignant neoplasm of bladder, unspecified; Z91.5 Personal history of self-harm; Z20.822 Contact with and (suspected) exposure to COVID-19; Z79.899 Other long term (current) drug therapy
CPT/HCPCS: 36415; 80053; 80076; 80143; 80179; 80307; 81001; 82077; 82248; 85025; 85610; 85730; 87086; 87635; 93005; 99285

== ENCOUNTER 2020-08-19 21:07 | Inpatient (IN) | payer MEDICARE, MEDICAID, SELFPAY ==
[2020-08-19 21:18] VITALS: BP 105/77; PULSE 91; RESP 16; TEMP 37; O2SAT 97; BMI 22.6
--- NOTE | 2020-08-19 21:30 | PC.NURSE ---
this nurse spoke to Poison Control regarding pt taking 400mg Seroquel instead of prescribed 100mg recommended treatment per poison control is activated charcoal 1g/kg with max dose of 50g for an adult. poison control also recommends EKG and supportive treatment/symptom monitoring. [facility] notified
--- NOTE | 2020-08-19 21:35 | ECG_ITS ---
Test Reason : OVERDOSE Blood Pressure : / mmHG Vent. Rate : 071 BPM Atrial Rate : 071 BPM P-R Int : 194 ms QRS Dur : 100 ms QT Int : 384 ms P-R-T Axes : 048 269 045 degrees QTc Int : 417 ms Normal sinus rhythm Right superior axis deviation Incomplete right bundle branch block Inferior infarct Abnormal ECG When compared with ECG of 15-JUL-2020 21:10, No significant change was found Referred By: Maurice Abebe Electronically Signed By:Luis Campbell
--- NOTE | 2020-08-19 21:37 | PC.NURSE ---
Pt calm and cooperative during price changer w/ security. Belongings placed in locker 11
--- NOTE | 2020-08-19 21:57 | PC.NURSE ---
pt refusing activated charcoal ([facility]) aware.
[2020-08-19 22:41] LABS: MANUAL DIFF FLAG NO
[2020-08-19 22:42] LABS: Basophils Absolute Auto 0.1 X10*3/uL (0.0-0.2); Basophils Percent Auto 0.9 % (0-2); Eosinophils Absolute Auto 0.2 X10*3/uL (0.0-0.4); Eosinophils Percent Auto 1.7 % (0-4); Hematocrit 41.1 % (42-52); Hemoglobin 14.4 g/dl (14.0-18.0); Imm Gran Abs Auto 0.03 X10*3/uL (0.00-0.03); Imm Gran Pct Auto 0.3 % (0.0-0.4); Lymphocytes Absolute Auto 2.6 X10*3/uL (1.2-4.9); Lymphocytes Percent Auto 30.5 % (20-40); Mean Corpuscular Hemoglobin 33.3 pg (27.0-33.0); Mean Corpuscular Volume 95.1 fL (80-98); Mean Platelet Volume 8.6 fL (9.4-12.4); Monocytes Absolute Auto 0.9 X10*3/uL (0.1-1.2); Monocytes Percent Auto 9.9 % (2-11); Neutrophils Absolute Auto 4.9 X10*3/uL (2.0-8.3); Neutrophils Percent Auto 56.7 % (45-73); Platelet Count 256 X10*3/uL (160-400); Red Blood Count 4.32 X10*6/uL (4.60-5.80); Red Cell Distribution Width 13.8 % (11.0-16.0); White Blood Count 8.6 X10*3/uL (4.8-10.8)
[2020-08-19] MEDS: Nicotine 21 MG PATCH.TD24 TRANSDERMA (22:43)
[2020-08-19 23:12] LABS: Alanine Aminotransferase 8 U/L (0-40); Albumin Level 3.8 g/dL (3.5-5.0); Alkaline Phosphatase 102 U/L (39-117); Anion Gap 11 (12-20); Aspartate Amino Transferase 11 U/L (5-37); Bilirubin Total 0.3 mg/dL (0.0-1.0); Blood Urea Nitrogen 14 mg/dL (9-16); Calcium 9.8 mg/dL (8.4-10.2); Carbon Dioxide 24 mmol/L (22-29); Chloride 105 mmol/L (96-108); Creatinine Clr Calc Pharmacy 78.6; Estimated Glomerular Filt Rate > 60; Glucose Random 117 mg/dL (60-115); Potassium 4.3 mmol/L (3.3-5.1); Sodium 136 mmol/L (135-145); Total Protein 6.1 g/dL (6.5-8.0)
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
--- NOTE | 2020-08-19 23:32 | PC.NURSE ---
paperwork faxed to [facility]
--- NOTE | 2020-08-20 01:58 | PC.NURSE ---
pt sleeping comfortably in left lateral position. respirations even and unlabored. no distress noted at this time
[2020-08-20 03:58] VITALS: BP 111/79; PULSE 69; RESP 16; TEMP 36.4; O2SAT 98
[2020-08-20 06:00] VITALS: BP 121/81; PULSE 61; RESP 16; TEMP 36.3; O2SAT 98
--- NOTE | 2020-08-20 07:02 | PC.NURSE ---
Patient is asleep in bed in no distress. Respirations are even and nonlabored
--- NOTE | 2020-08-20 07:40 | PC.NURSE ---
Pt is awake and alert. Pt is ambulatory to the bathroom and back with a steady gate. Breakfast tray given to patient.
[2020-08-20 07:46] VITALS: BP 120/83; PULSE 65; RESP 16; O2SAT 97
--- NOTE | 2020-08-20 09:05 | PC.NURSE ---
Patient is resting quietly in bed on right side with eyes closed. No distress noted.
--- NOTE | 2020-08-20 10:00 | PC.NURSE ---
Pt is lying bed resting quietly without noted distress
--- NOTE | 2020-08-20 13:00 | PC.NURSE ---
Patient is resting quietly in bed in no distress.
--- NOTE | 2020-08-20 15:01 | PC.NURSE ---
Patient is lying in bed talking with behavioral health in no distress after eating lunch. Patient is calm and cooperative
--- NOTE | 2020-08-20 16:50 | PHA.MEDREC ---
Pharmacy Consult ? Medication Reconciliation Pharmacy has completed the medication reconciliation. Verified with Dr. Martinez patient is on mybetriq and toviaz
[2020-08-20] MEDS: Mirabegron 25 MG TAB.ER.24H PO (18:22)
[2020-08-20] MEDS: Omeprazole 20 MG CAPSULE.DR PO (18:22)
[2020-08-20] MEDS: Sertraline HCL 100 MG TABLET PO (18:22)
[2020-08-20] MEDS: OLANZapine 5 MG TABLET PO (18:23)
[2020-08-20 19:23] LABS: COVID-19 Test Negative (Negative)
[2020-08-20] MEDS: lamiVUDine 150 MG TABLET 300 MG PO (20:14)
[2020-08-20] MEDS: Dolutegravir Sodium 50 MG TABLET PO (20:15)
[2020-08-20] MEDS: Atorvastatin Calcium 20 MG TABLET PO (20:23)
[2020-08-20] MEDS: Methylphenidate HCl 10 MG TABLET 20 MG PO (20:23)
[2020-08-20] MEDS: OLANZapine 7.5 MG TABLET 15 MG PO (20:24)
[2020-08-20] MEDS: QUEtiapine Fumarate 100 MG TABLET PO (20:24)
[2020-08-20] MEDS: traZODone HCL 100 MG TABLET PO (20:24)
[2020-08-20] MEDS: lamoTRIgine 100 MG TABLET 200 MG PO (20:24)
[2020-08-20 21:32] LABS: Amphetamine Screen Urine Not Detected (Not Detect); Barbiturates, Urine Not Detected (Not Detect); Benzodiazepines Screen Urine Not Detected (Not Detect); Cannabinoid Screen Urine POSITIVE (Not Detect); Cocaine Screen Urine POSITIVE (Not Detect); Opiate Screen Urine Not Detected (Not Detect); Phencyclidine Screen Urine Not Detected (Not Detect)
[2020-08-20 21:40] VITALS: BP 131/85; PULSE 76
[2020-08-20] MEDS: Prazosin HCL 1 MG CAPSULE 2 MG PO (21:40)
[2020-08-20 21:49] VITALS: BP 131/85; PULSE 73; RESP 17; TEMP 36.6; O2SAT 97
[2020-08-20 23:29] VITALS: BP 147/90; PULSE 85; RESP 16; TEMP 36.7; O2SAT 98
--- NOTE | 2020-08-21 02:07 | MHC.CARE ---
Late entry: CARE team completed evaluation with disposition for inpatient psychiatric treatment. Pt is voluntary for admission. He has been presented to and accepted for admission to [facility] and will remain in ED until transferred to unit.
--- NOTE | 2020-08-21 06:19 | PC.NURSE ---
Patient slept through the night, no distress observed/reported, compliant with medication, disposition section 12 bed search, possible admission to [facility] in the morning, will continue to monitor.
--- NOTE | 2020-08-21 07:12 | PC.NURSE ---
patient appears at rest at present respirations are even and unlabored patient appears in no distress
[2020-08-21] MEDS: lamoTRIgine 100 MG TABLET 200 MG PO ×2 (09:02→21:44)
[2020-08-21] MEDS: Mirabegron 25 MG TAB.ER.24H PO (09:02)
[2020-08-21] MEDS: QUEtiapine Fumarate 100 MG TABLET PO ×3 (09:02→21:43)
[2020-08-21] MEDS: Omeprazole 20 MG CAPSULE.DR PO (09:02)
[2020-08-21] MEDS: OLANZapine 5 MG TABLET PO (09:02)
[2020-08-21] MEDS: lamiVUDine 150 MG TABLET 300 MG PO (09:03)
[2020-08-21] MEDS: Sertraline HCL 100 MG TABLET PO (09:03)
[2020-08-21] MEDS: Methylphenidate HCl 10 MG TABLET 20 MG PO ×2 (09:03→14:11)
[2020-08-21] MEDS: Dolutegravir Sodium 50 MG TABLET PO (09:04)
[2020-08-21 11:02] VITALS: BP 142/97; PULSE 92; RESP 18; TEMP 36.2; O2SAT 98
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
[2020-08-21] MEDS: Nicotine Polacrilex 2 MG GUM 4 MG BUCCAL ×3 (13:09→19:39)
[2020-08-21] MEDS: Nicotine 21 MG PATCH.TD24 TRANSDERMA (14:11)
[2020-08-21 21:42] VITALS: BP 130/81; PULSE 99
[2020-08-21] MEDS: cloNIDine HCL 0.1 MG TABLET PO (21:42)
[2020-08-21] MEDS: traZODone HCL 100 MG TABLET PO (21:43)
[2020-08-21] MEDS: Atorvastatin Calcium 20 MG TABLET PO (21:43)
[2020-08-21 21:44] VITALS: BP 130/81; PULSE 99
[2020-08-21] MEDS: Prazosin HCL 1 MG CAPSULE 2 MG PO (21:44)
[2020-08-21] MEDS: OLANZapine 7.5 MG TABLET 15 MG PO (21:45)
[2020-08-21 21:48] VITALS: BP 130/81; PULSE 75; TEMP 36.3; O2SAT 99
--- NOTE | 2020-08-21 21:51 | PC.NURSE ---
declined ritalin-reports he does not take at night as it interferes with sleep. reports he takes 40 mg in am and 20 mg at 1300
[2020-08-22] MEDS: Nicotine Polacrilex 2 MG GUM 4 MG BUCCAL ×5 (00:08→20:26)
[2020-08-22 06:00] VITALS: BP 135/87; PULSE 93; RESP 16; TEMP 36.5; O2SAT 100
[2020-08-22] MEDS: Mirabegron 25 MG TAB.ER.24H PO (08:11)
[2020-08-22] MEDS: Dolutegravir Sodium 50 MG TABLET PO (08:12)
[2020-08-22] MEDS: Methylphenidate HCl 10 MG TABLET 20 MG PO ×2 (08:12→13:50)
[2020-08-22] MEDS: Sertraline HCL 100 MG TABLET PO (08:12)
[2020-08-22] MEDS: lamiVUDine 150 MG TABLET 300 MG PO (08:12)
[2020-08-22] MEDS: Omeprazole 20 MG CAPSULE.DR PO (08:12)
[2020-08-22] MEDS: QUEtiapine Fumarate 100 MG TABLET PO ×3 (08:12→21:05)
[2020-08-22] MEDS: lamoTRIgine 100 MG TABLET 200 MG PO ×2 (08:12→21:04)
[2020-08-22] MEDS: OLANZapine 5 MG TABLET PO (08:13)
[2020-08-22] MEDS: Nicotine 21 MG PATCH.TD24 TRANSDERMA (08:19)
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
[2020-08-22 13:50] VITALS: BP 131/90; PULSE 93
[2020-08-22] MEDS: cloNIDine HCL 0.1 MG TABLET PO ×2 (13:50→21:04)
[2020-08-22 20:56] VITALS: BP 122/82; PULSE 85; TEMP 36.5; O2SAT 99
[2020-08-22] MEDS: traZODone HCL 100 MG TABLET PO (21:03)
[2020-08-22 21:04] VITALS: BP 122/82; PULSE 85
[2020-08-22] MEDS: Prazosin HCL 1 MG CAPSULE 2 MG PO (21:04)
[2020-08-22] MEDS: Atorvastatin Calcium 20 MG TABLET PO (21:05)
[2020-08-22] MEDS: OLANZapine 7.5 MG TABLET 15 MG PO (21:05)
[2020-08-23 08:14] LABS: Estimated Average Glucose 108 mg/dL; Hemoglobin A1c % 5.4 %
[2020-08-23 08:38] LABS: Cholesterol 144 mg/dL; HDL Cholesterol 40 mg/dL; LDL Cholesterol Calculated 89 mg/dl; Triglycerides 79 mg/dL
[2020-08-23 08:59] LABS: TSH reflex Free T4 1.86 uIU/mL (0.32-4.0)
[2020-08-23 09:30] VITALS: BP 131/84; PULSE 77; RESP 17; TEMP 36.3; O2SAT 95
[2020-08-23] MEDS: Omeprazole 20 MG CAPSULE.DR PO (09:36)
[2020-08-23] MEDS: Nicotine 21 MG PATCH.TD24 TRANSDERMA (09:36)
[2020-08-23] MEDS: Dolutegravir Sodium 50 MG TABLET PO (09:36)
[2020-08-23] MEDS: Methylphenidate HCl 10 MG TABLET 40 MG PO (09:36)
[2020-08-23] MEDS: Nicotine Polacrilex 2 MG GUM 4 MG BUCCAL ×3 (09:36→19:06)
[2020-08-23] MEDS: Sertraline HCL 100 MG TABLET PO (09:36)
[2020-08-23] MEDS: QUEtiapine Fumarate 100 MG TABLET PO ×3 (09:36→20:31)
[2020-08-23] MEDS: OLANZapine 5 MG TABLET PO (09:36)
[2020-08-23] MEDS: lamiVUDine 150 MG TABLET 300 MG PO (09:36)
[2020-08-23] MEDS: Mirabegron 25 MG TAB.ER.24H PO (09:37)
[2020-08-23] MEDS: lamoTRIgine 100 MG TABLET 200 MG PO ×2 (09:37→20:31)
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
[2020-08-23] MEDS: Methylphenidate HCl 10 MG TABLET 20 MG PO (14:04)
[2020-08-23 18:00] VITALS: BP 122/84; PULSE 74; RESP 18; TEMP 36.5; O2SAT 99
[2020-08-23] MEDS: Acetaminophen 325 MG TABLET 650 MG PO (18:40)
[2020-08-23] MEDS: traZODone HCL 100 MG TABLET PO (20:30)
[2020-08-23 20:31] VITALS: BP 122/84; PULSE 74
[2020-08-23] MEDS: OLANZapine 7.5 MG TABLET 15 MG PO (20:31)
[2020-08-23] MEDS: Prazosin HCL 1 MG CAPSULE 2 MG PO (20:31)
[2020-08-23] MEDS: Atorvastatin Calcium 20 MG TABLET PO (20:31)
[2020-08-23 21:04] VITALS: BP 122/84; PULSE 74
[2020-08-23] MEDS: cloNIDine HCL 0.1 MG TABLET PO (21:04)
[2020-08-24] MEDS: Nicotine Polacrilex 2 MG GUM 4 MG BUCCAL ×3 (07:38→18:25)
[2020-08-24] MEDS: Nicotine 21 MG PATCH.TD24 TRANSDERMA (08:22)
[2020-08-24] MEDS: Dolutegravir Sodium 50 MG TABLET PO (08:23)
[2020-08-24] MEDS: lamoTRIgine 100 MG TABLET 200 MG PO ×2 (08:23→20:21)
[2020-08-24] MEDS: Mirabegron 25 MG TAB.ER.24H PO (08:23)
[2020-08-24] MEDS: Omeprazole 20 MG CAPSULE.DR PO (08:23)
[2020-08-24] MEDS: lamiVUDine 150 MG TABLET 300 MG PO (08:23)
[2020-08-24] MEDS: OLANZapine 5 MG TABLET PO (08:23)
[2020-08-24] MEDS: Methylphenidate HCl 10 MG TABLET 40 MG PO (08:23)
[2020-08-24] MEDS: QUEtiapine Fumarate 100 MG TABLET PO ×3 (08:23→20:19)
[2020-08-24] MEDS: Sertraline HCL 100 MG TABLET PO (08:24)
[2020-08-24 08:29] VITALS: BP 146/91; PULSE 81; RESP 18; TEMP 36.2; O2SAT 99
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
[2020-08-24 11:08] VITALS: BP 109/75; PULSE 105
[2020-08-24] MEDS: cloNIDine HCL 0.1 MG TABLET PO ×2 (11:08→18:25)
[2020-08-24] MEDS: Methylphenidate HCl 10 MG TABLET 20 MG PO (14:02)
[2020-08-24 18:00] VITALS: BP 126/90; PULSE 82; RESP 18; TEMP 36.4; O2SAT 100
[2020-08-24 18:25] VITALS: BP 112/84; PULSE 86
[2020-08-24 20:18] VITALS: BP 126/90; PULSE 84
[2020-08-24] MEDS: OLANZapine 7.5 MG TABLET 15 MG PO (20:18)
[2020-08-24] MEDS: Prazosin HCL 1 MG CAPSULE 2 MG PO (20:18)
[2020-08-24] MEDS: Atorvastatin Calcium 20 MG TABLET PO (20:21)
[2020-08-24] MEDS: traZODone HCL 100 MG TABLET PO (20:21)
[2020-08-25 08:07] VITALS: BP 142/74; PULSE 75; TEMP 36; O2SAT 95
[2020-08-25] MEDS: Nicotine 21 MG PATCH.TD24 TRANSDERMA (08:23)
[2020-08-25] MEDS: lamiVUDine 150 MG TABLET 300 MG PO (08:24)
[2020-08-25] MEDS: Dolutegravir Sodium 50 MG TABLET PO (08:25)
[2020-08-25] MEDS: lamoTRIgine 100 MG TABLET 200 MG PO ×2 (08:25→20:50)
[2020-08-25] MEDS: OLANZapine 5 MG TABLET PO (08:25)
[2020-08-25] MEDS: Methylphenidate HCl 10 MG TABLET 40 MG PO (08:25)
[2020-08-25] MEDS: QUEtiapine Fumarate 100 MG TABLET PO ×3 (08:25→20:51)
[2020-08-25] MEDS: Omeprazole 20 MG CAPSULE.DR PO (08:25)
[2020-08-25] MEDS: Sertraline HCL 100 MG TABLET PO (08:25)
[2020-08-25] MEDS: Mirabegron 25 MG TAB.ER.24H PO (08:26)
--- NOTE | 2020-08-25 13:36 | P.PNPSI_ITS ---
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 Medication Compliance: Yes Side effects from medications: No Attending Groups: Yes Review of Systems Review of Systems balddera issues Mental Status Exam Mental Status Exam Narrative: quite talkative, sitting in bed reading or on phone with friends Patient Appearance: Disheveled Patient Orientation: Person, Place, Time and Situation Level of Consciousness: Awake Patient Behavior: Appropriate Mood Description: Calm Affect Description: Calm Speech Pattern: Excessive Hallucinations: None Thought Process: Intact and Linear Thought Content: positive for Racing Judgement: Fair Diagnostics Vital Signs (24Hr): Vital Signs - 24 hr 08/24/20 18:00 08/24/20 18:25 08/24/20 20:18 Temperature 97.6 F Pulse Rate 82 86 84 Respiratory Rate 18 Blood Pressure 126/90 H 112/84 126/90 H Pulse Oximetry 100 08/25/20 08:07 Temperature 96.8 F Pulse Rate 75 Respiratory Rate Blood Pressure 142/74 H Pulse Oximetry 95 Body Mass Index 22.6 Labs Results: 08/19/20 22:35 08/19/20 22:35 Medications Medications Current Medications Generic Name Dose Route Start Last Admin Trade Name Alyq PRN Reason Stop Dose Admin Acetaminophen 650 mg 08/21/20 09:00 08/23/20 18:40 Acetaminophen 325 Mg Tablet PO 650 mg Q6H PRN Administration Headache/Pain Mild Scale (1-3) Al Hydroxide/Mg Hydroxide 30 ml 08/21/20 09:00 Magnesium Hydrox/Alum Hydrox 30 Ml Oral.Susp PO Q6H PRN Heartburn/Nausea Atorvastatin Calcium 20 mg 08/20/20 21:00 08/24/20 20:21 Atorvastatin Calcium 20 Mg Tablet PO 20 mg BEDTIME JENNIFER Administration Clonidine HCl 0.1 mg 08/20/20 17:53 08/24/20 18:25 Clonidine Hcl 0.1 Mg Tablet PO 0.1 mg QID PRN Administration anxiety Protocol Dolutegravir Sodium 50 mg 08/20/20 19:00 08/25/20 08:25 Dolutegravir Sodium 50 Mg Tablet PO 50 mg DAILY JENNIFER Administration Hydroxyzine HCl 25 mg 08/21/20 09:00 Hydroxyzine Hcl 25 Mg Tablet PO BEDTIME PRN Anxiety Lamivudine 300 mg 08/20/20 19:00 08/25/20 08:24 Lamivudine 150 Mg Tablet PO 300 mg DAILY JENNIFER Administration Lamotrigine 200 mg 08/20/20 21:00 08/25/20 08:25 Lamotrigine 100 Mg Tablet PO 200 mg BID JENNIFER Administration Magnesium Hydroxide 30 ml 08/21/20 09:00 Milk Of Magnesia 30 Ml Oral.Susp PO DAILY PRN Constipation Methylphenidate HCl 40 mg 08/23/20 09:00 08/25/20 08:25 Methylphenidate Hcl 10 Mg Tablet PO 40 mg DAILY JENNIFER Administration Methylphenidate HCl 20 mg 08/22/20 13:30 08/24/20 14:02 Methylphenidate Hcl 10 Mg Tablet PO 20 mg DAILY@1330 JENNIFER Administration Mirabegron 25 mg 08/20/20 18:00 08/25/20 08:26 Mirabegron 25 Mg Tab.Er.24h PO 25 mg DAILY JENNIFER Administration Nicotine 21 mg 08/21/20 13:30 08/25/20 08:23 Nicotine 21 Mg Patch.Td24 TRANSDERMA 21 mg DAILY JENNIFER Administration Nicotine Polacrilex 4 mg 08/20/20 17:53 08/24/20 18:25 Nicotine Polacrilex 2 Mg Gum BUCCAL 4 mg Q2H PRN Administration Nicotine Cravings Pt Own Med: 4 each 08/24/20 09:00 08/24/20 08:22 Fesoterodine Er ( PO 4 each Toviaz) 4mg Tab DAILY JENNIFER Administration Olanzapine 5 mg 08/20/20 18:00 08/25/20 08:25 Olanzapine 5 Mg Tablet PO 5 mg DAILY JENNIFER Administration Olanzapine 15 mg 08/20/20 21:00 08/24/20 20:18 Olanzapine 7.5 Mg Tablet PO 15 mg BEDTIME JENNIFER Administration Omeprazole 20 mg 08/20/20 18:15 08/25/20 08:25 Omeprazole 20 Mg Capsule.Dr PO 20 mg DAILY JENNIFER Administration Pharmacy Consult 1 each 08/20/20 15:48 Consult Rx Perform Med Rec MISCELLANE ONCE PRN Consult order Prazosin HCl 2 mg 08/20/20 21:00 08/24/20 20:18 Prazosin Hcl 1 Mg Capsule PO 2 mg BEDTIME JENNIFER Administration Protocol Quetiapine Fumarate 100 mg 08/20/20 21:00 08/25/20 08:25 Quetiapine Fumarate 100 Mg Tablet PO 100 mg TID JENNIFER Administration Sertraline HCl 100 mg 08/20/20 18:00 08/25/20 08:25 Sertraline Hcl 100 Mg Tablet PO 100 mg DAILY JENNIFER Administration Trazodone HCl 100 mg 08/20/20 21:00 08/24/20 20:21 Trazodone Hcl 100 Mg Tablet PO 100 mg BEDTIME JENNIFER Administration Trazodone HCl 50 mg 08/21/20 09:00 Trazodone Hcl 50 Mg Tablet PO BEDTIME PRN Insomnia Allergies Allergies Allergy/AdvReac Type Severity Reaction Status Date / Time bee pollen [BEE STINGS] Allergy Severe ANAPHYLAXIS Verified 07/16/20 00:00 Assessment & Plan Assessment & Plan (1) Cocaine use disorder, mild, abuse: Status: Acute Code(s): F14.10 - Cocaine abuse, uncomplicated Assessment and Plan: recent relapse may have ppt decline mood/si and recent break up (2) Borderline personality disorder: Status: Acute Code(s): F60.3 - Borderline personality disorder Assessment and Plan: various interpersonal conflicts (3) Bipolar 1 disorder: Status: Acute Code(s): F31.9 - Bipolar disorder, unspecified Assessment and Plan: no further si - feeling better Greater than 50% of the session was spent on counseling and/or coordination of care Reason for contiued inpatient stay Substantial Risk for: rapid decompensation
[2020-08-25] MEDS: Methylphenidate HCl 10 MG TABLET 20 MG PO (14:20)
[2020-08-25] MEDS: Nicotine Polacrilex 2 MG GUM 4 MG BUCCAL ×3 (14:51→21:04)
[2020-08-25] MEDS: Acetaminophen 325 MG TABLET 650 MG PO (17:12)
[2020-08-25 20:30] VITALS: BP 139/91; PULSE 90; RESP 18; TEMP 36.4; O2SAT 99
[2020-08-25] MEDS: Atorvastatin Calcium 20 MG TABLET PO (20:50)
[2020-08-25] MEDS: OLANZapine 7.5 MG TABLET 15 MG PO (20:50)
[2020-08-25 20:51] VITALS: BP 139/91; PULSE 90
[2020-08-25] MEDS: Prazosin HCL 1 MG CAPSULE 2 MG PO (20:51)
[2020-08-25] MEDS: traZODone HCL 100 MG TABLET PO (20:51)
[2020-08-25 21:04] VITALS: BP 139/91; PULSE 90
[2020-08-25] MEDS: cloNIDine HCL 0.1 MG TABLET PO (21:04)
[2020-08-25] MEDS: Milk of Magnesia 30 ML ORAL.SUSP PO (22:01)
[2020-08-26] MEDS: Methylphenidate HCl 10 MG TABLET 40 MG PO (09:38)
[2020-08-26] MEDS: lamiVUDine 150 MG TABLET 300 MG PO (09:38)
[2020-08-26] MEDS: Nicotine 21 MG PATCH.TD24 TRANSDERMA (09:38)
[2020-08-26 09:39] VITALS: BP 137/80; PULSE 82
[2020-08-26] MEDS: cloNIDine HCL 0.1 MG TABLET PO ×3 (09:39→20:37)
[2020-08-26] MEDS: Sertraline HCL 100 MG TABLET PO (09:39)
[2020-08-26] MEDS: Omeprazole 20 MG CAPSULE.DR PO (09:39)
[2020-08-26] MEDS: lamoTRIgine 100 MG TABLET 200 MG PO ×2 (09:39→20:30)
[2020-08-26] MEDS: Mirabegron 25 MG TAB.ER.24H PO (09:39)
[2020-08-26] MEDS: Dolutegravir Sodium 50 MG TABLET PO (09:39)
[2020-08-26 09:40] VITALS: BP 137/80; PULSE 82; RESP 18; TEMP 36.7; O2SAT 97
[2020-08-26] MEDS: OLANZapine 5 MG TABLET PO (09:40)
[2020-08-26] MEDS: QUEtiapine Fumarate 100 MG TABLET PO ×3 (09:40→20:30)
[2020-08-26] MEDS: Nicotine Polacrilex 2 MG GUM 4 MG BUCCAL ×3 (12:18→20:36)
--- NOTE | 2020-08-26 13:02 | HO.PSYCHPN ---
Subjective Subjective Date of Service: 08/26/20 Reason For Visit: SI Subjective Notes: Conditional Voluntary Healthcare Proxy: No Guardianship: No Medical Problems Affecting Mental Status: No Interim History: Pt reports he is doing ok anxiety up re dc depression mild , no si, hoping to dc Thursday co constipation Medication Compliance: Yes Side effects from medications: Yes (no bm since 08/19?) Attending Groups: Intermittent Mental Status Exam Mental Status Exam Patient Appearance: Well Grooomed and Appropriate Patient Orientation: Person, Place, Time and Situation Level of Consciousness: Awake Patient Behavior: Appropriate and Talkative Mood Description: Anxious and Sad (discussed his mom who was in journalism- pt writing memoir/fiction/nonfiction) Affect Description: Calm Patient Cognition Impaired: No Ability to Follow Directions: Good Speech Pattern: Clear Memory Description: Intact Hallucinations: None Delusions: Not Present Thought Process: Intact Thought Content: positive for Intact Depressive Symptoms: Increased Anxiety Judgement: Fair Diagnostics Vital Signs (24Hr): Vital Signs - 24 hr 08/25/20 20:30 08/25/20 20:51 08/25/20 21:04 Temperature 97.5 F Pulse Rate 90 90 90 Respiratory Rate 18 Blood Pressure 139/91 H 139/91 H 139/91 H Pulse Oximetry 99 08/26/20 09:39 08/26/20 09:40 Temperature 98.0 F Pulse Rate 82 82 Respiratory Rate 18 Blood Pressure 137/80 137/80 Pulse Oximetry 97 Body Mass Index 22.6 Labs Results: 08/19/20 22:35 08/19/20 22:35 Medications Medications Current Medications Generic Name Dose Route Start Last Admin Trade Name Freq PRN Reason Stop Dose Admin Acetaminophen 650 mg 08/21/20 09:00 08/25/20 17:12 Acetaminophen 325 Mg Tablet PO 650 mg Q6H PRN Administration Headache/Pain Mild Scale (1-3) Al Hydroxide/Mg Hydroxide 30 ml 08/21/20 09:00 Magnesium Hydrox/Alum Hydrox 30 Ml Oral.Susp PO Q6H PRN Heartburn/Nausea Atorvastatin Calcium 20 mg 08/20/20 21:00 08/25/20 20:50 Atorvastatin Calcium 20 Mg Tablet PO 20 mg BEDTIME EJNNIFER Administration Clonidine HCl 0.1 mg 08/20/20 17:53 08/26/20 09:39 Clonidine Hcl 0.1 Mg Tablet PO 0.1 mg QID PRN Administration anxiety Protocol Dolutegravir Sodium 50 mg 08/20/20 19:00 08/26/20 09:39 Dolutegravir Sodium 50 Mg Tablet PO 50 mg DAILY JENNIFER Administration Hydroxyzine HCl 25 mg 08/21/20 09:00 Hydroxyzine Hcl 25 Mg Tablet PO BEDTIME PRN Anxiety Lamivudine 300 mg 08/20/20 19:00 08/26/20 09:38 Lamivudine 150 Mg Tablet PO 300 mg DAILY JENNIFER Administration Lamotrigine 200 mg 08/20/20 21:00 08/26/20 09:39 Lamotrigine 100 Mg Tablet PO 200 mg BID JENNIFER Administration Magnesium Hydroxide 30 ml 08/21/20 09:00 08/25/20 22:01 Milk Of Magnesia 30 Ml Oral.Susp PO 30 ml DAILY PRN Administration Constipation Methylphenidate HCl 40 mg 08/23/20 09:00 08/26/20 09:38 Methylphenidate Hcl 10 Mg Tablet PO 40 mg DAILY JENNIFER Administration Methylphenidate HCl 20 mg 08/22/20 13:30 08/25/20 14:20 Methylphenidate Hcl 10 Mg Tablet PO 20 mg DAILY@1330 JENNIFER Administration Mirabegron 25 mg 08/20/20 18:00 08/26/20 09:39 Mirabegron 25 Mg Tab.Er.24h PO 25 mg DAILY JENNIFER Administration Nicotine 21 mg 08/21/20 13:30 08/26/20 09:38 Nicotine 21 Mg Patch.Td24 TRANSDERMA 21 mg DAILY JENNIFER Administration Nicotine Polacrilex 4 mg 08/20/20 17:53 08/26/20 12:18 Nicotine Polacrilex 2 Mg Gum BUCCAL 4 mg Q2H PRN Administration Nicotine Cravings Pt Own Med: 4 each 08/24/20 09:00 08/26/20 09:40 Fesoterodine Er ( PO 4 each Toviaz) 4mg Tab DAILY JENNIFER Administration Olanzapine 5 mg 08/20/20 18:00 08/26/20 09:40 Olanzapine 5 Mg Tablet PO 5 mg DAILY JENNIFER Administration Olanzapine 15 mg 08/20/20 21:00 08/25/20 20:50 Olanzapine 7.5 Mg Tablet PO 15 mg BEDTIME JENNIFER Administration Omeprazole 20 mg 08/20/20 18:15 08/26/20 09:39 Omeprazole 20 Mg Capsule.Dr PO 20 mg DAILY JENNIFER Administration Pharmacy Consult 1 each 08/20/20 15:48 Consult Rx Perform Med Rec MISCELLANE ONCE PRN Consult order Prazosin HCl 2 mg 08/20/20 21:00 08/25/20 20:51 Prazosin Hcl 1 Mg Capsule PO 2 mg BEDTIME JENNIFER Administration Protocol Quetiapine Fumarate 100 mg 08/20/20 21:00 08/26/20 09:40 Quetiapine Fumarate 100 Mg Tablet PO 100 mg TID JENNIFER Administration Sertraline HCl 100 mg 08/20/20 18:00 08/26/20 09:39 Sertraline Hcl 100 Mg Tablet PO 100 mg DAILY JENNIFER Administration Trazodone HCl 100 mg 08/20/20 21:00 08/25/20 20:51 Trazodone Hcl 100 Mg Tablet PO 100 mg BEDTIME JENNIFER Administration Trazodone HCl 50 mg 08/21/20 09:00 Trazodone Hcl 50 Mg Tablet PO BEDTIME PRN Insomnia Allergies Allergies Allergy/AdvReac Type Severity Reaction Status Date / Time bee pollen [BEE STINGS] Allergy Severe ANAPHYLAXIS Verified 07/16/20 00:00 Assessment & Plan Assessment & Plan (1) Cocaine use disorder, mild, abuse: Status: Acute Code(s): F14.10 - Cocaine abuse, uncomplicated Assessment and Plan: recent relapse may have ppt decline mood/si and recent break up (2) Borderline personality disorder: Status: Acute Code(s): F60.3 - Borderline personality disorder Assessment and Plan: various interpersonal conflicts (3) Bipolar 1 disorder: Status: Acute Code(s): F31.9 - Bipolar disorder, unspecified Assessment and Plan: no further si - feeling better some anxiety - Greater than 50% of the session was spent on counseling and/or coordination of care Reason for contiued inpatient stay Substantial Risk for: inability to function and rapid decompensation
[2020-08-26 13:37] VITALS: BP 123/84; PULSE 90
[2020-08-26] MEDS: Methylphenidate HCl 10 MG TABLET 20 MG PO (13:37)
[2020-08-26] MEDS: Magnesium Citrate 300 ML SOLUTION PO (14:52)
[2020-08-26 18:00] VITALS: BP 128/84; PULSE 72; RESP 18; TEMP 36.2; O2SAT 100
[2020-08-26 20:30] VITALS: BP 128/84; PULSE 72
[2020-08-26] MEDS: traZODone HCL 100 MG TABLET PO (20:30)
[2020-08-26] MEDS: OLANZapine 7.5 MG TABLET 15 MG PO (20:30)
[2020-08-26] MEDS: Prazosin HCL 1 MG CAPSULE 2 MG PO (20:30)
[2020-08-26] MEDS: Atorvastatin Calcium 20 MG TABLET PO (20:30)
[2020-08-26 20:37] VITALS: BP 128/84; PULSE 72
--- NOTE | 2020-08-27 09:08 | HO.PSYCHPN ---
Subjective Subjective Date of Service: 08/28/20 Reason For Visit: SI Interim History: Marcello reports feeling overall less overwhelmed, less depressed. He denies SI/HI. he reports sleeping and eating well. He reports constipation resolved last night. He has been mostly in his room but social with select peers. No behavioral concerns. Review of Systems Review of Systems balddera issues Constitutional: Denies daytime sleepiness, Denies fatigue and Denies weight loss Cardiovascular: Reports dyspnea and Reports dyspnea on exertion Respiratory: Reports dyspnea and Reports dyspnea on exertion Gastrointestinal: Denies constipation, Denies dyspepsia, Denies diarrhea and Denies vomiting Endocrine: Denies fatigue Mental Status Exam Mental Status Exam Narrative: Appearance: casually groomed, fair hygiene, in NAD Behavior: calm, cooperative Psychomotor: no agitation or retardation noted Speech: clear, normal rate/rhythm/volume, spontaneous TP: linear TC: no signs of psychosis, future oriented Mood: okay Affect: congruent, brightens at times SI:denies HI:denies AH/VH:denies Delusions:none Insight/judgment:poor x 2. Memory/cog: alert, oriented x 3. Diagnostics Vital Signs (24Hr): Vital Signs - 24 hr 08/27/20 10:00 08/27/20 21:25 08/27/20 22:06 Temperature 98.3 F Pulse Rate 84 86 87 Respiratory Rate 18 Blood Pressure 134/96 H 147/91 H 135/96 H Pulse Oximetry 97 08/27/20 22:09 Temperature 97.9 F Pulse Rate Respiratory Rate Blood Pressure Pulse Oximetry 98 Body Mass Index 22.6 Labs Results: 08/19/20 22:35 08/19/20 22:35 Medications Medications Current Medications Generic Name Dose Route Start Last Admin Trade Name Freq PRN Reason Stop Dose Admin Acetaminophen 650 mg 08/21/20 09:00 08/25/20 17:12 Acetaminophen 325 Mg Tablet PO 650 mg Q6H PRN Administration Headache/Pain Mild Scale (1-3) Al Hydroxide/Mg Hydroxide 30 ml 08/21/20 09:00 Magnesium Hydrox/Alum Hydrox 30 Ml Oral.Susp PO Q6H PRN Heartburn/Nausea Atorvastatin Calcium 20 mg 08/20/20 21:00 08/27/20 22:06 Atorvastatin Calcium 20 Mg Tablet PO 20 mg BEDTIME JENNIFER Administration Clonidine HCl 0.1 mg 08/20/20 17:53 08/27/20 21:25 Clonidine Hcl 0.1 Mg Tablet PO 0.1 mg QID PRN Administration anxiety Protocol Dolutegravir Sodium 50 mg 08/20/20 19:00 08/27/20 10:03 Dolutegravir Sodium 50 Mg Tablet PO 50 mg DAILY JENNIFER Administration Hydroxyzine HCl 25 mg 08/21/20 09:00 Hydroxyzine Hcl 25 Mg Tablet PO BEDTIME PRN Anxiety Lamivudine 300 mg 08/20/20 19:00 08/27/20 10:03 Lamivudine 150 Mg Tablet PO 300 mg DAILY JENNIFER Administration Lamotrigine 200 mg 08/20/20 21:00 08/27/20 22:06 Lamotrigine 100 Mg Tablet PO 200 mg BID JENNIFER Administration Magnesium Hydroxide 30 ml 08/21/20 09:00 08/25/20 22:01 Milk Of Magnesia 30 Ml Oral.Susp PO 30 ml DAILY PRN Administration Constipation Methylphenidate HCl 40 mg 08/23/20 09:00 08/27/20 10:03 Methylphenidate Hcl 10 Mg Tablet PO 40 mg DAILY JENNIFER Administration Methylphenidate HCl 20 mg 08/22/20 13:30 08/27/20 14:29 Methylphenidate Hcl 10 Mg Tablet PO 20 mg DAILY@1330 JENNIFER Administration Mirabegron 25 mg 08/20/20 18:00 08/27/20 10:03 Mirabegron 25 Mg Tab.Er.24h PO 25 mg DAILY JENNIFER Administration Nicotine 21 mg 08/21/20 13:30 08/27/20 10:01 Nicotine 21 Mg Patch.Td24 TRANSDERMA 21 mg DAILY JENNIFER Administration Nicotine Polacrilex 4 mg 08/20/20 17:53 08/27/20 21:24 Nicotine Polacrilex 2 Mg Gum BUCCAL 4 mg Q2H PRN Administration Nicotine Cravings Pt Own Med: 4 each 08/24/20 09:00 08/27/20 10:01 Fesoterodine Er ( PO 4 each Toviaz) 4mg Tab DAILY JENNIFER Administration Olanzapine 5 mg 08/20/20 18:00 08/27/20 10:02 Olanzapine 5 Mg Tablet PO 5 mg DAILY JENNIFER Administration Olanzapine 15 mg 08/20/20 21:00 08/27/20 22:06 Olanzapine 7.5 Mg Tablet PO 15 mg BEDTIME JENNIFER Administration Omeprazole 20 mg 08/20/20 18:15 08/27/20 10:02 Omeprazole 20 Mg Capsule.Dr PO 20 mg DAILY JENNIFER Administration Pharmacy Consult 1 each 08/20/20 15:48 Consult Rx Perform Med Rec MISCELLANE ONCE PRN Consult order Prazosin HCl 2 mg 08/20/20 21:00 08/27/20 22:06 Prazosin Hcl 1 Mg Capsule PO 2 mg BEDTIME JENNIFER Administration Protocol Quetiapine Fumarate 100 mg 08/20/20 21:00 08/27/20 22:06 Quetiapine Fumarate 100 Mg Tablet PO 100 mg TID JENNIFER Administration Sertraline HCl 100 mg 08/20/20 18:00 08/27/20 10:04 Sertraline Hcl 100 Mg Tablet PO 100 mg DAILY JENNIFER Administration Trazodone HCl 100 mg 08/20/20 21:00 08/27/20 22:06 Trazodone Hcl 100 Mg Tablet PO 100 mg BEDTIME JENNIFER Administration Trazodone HCl 50 mg 08/21/20 09:00 Trazodone Hcl 50 Mg Tablet PO BEDTIME PRN Insomnia Allergies Allergies Allergy/AdvReac Type Severity Reaction Status Date / Time bee pollen [BEE STINGS] Allergy Severe ANAPHYLAXIS Verified 07/16/20 00:00 Assessment & Plan Assessment & Plan (1) Cocaine use disorder, mild, abuse: Status: Acute Code(s): F14.10 - Cocaine abuse, uncomplicated Assessment and Plan: recent relapse may have ppt decline mood/si and recent break up (2) Borderline personality disorder: Status: Acute Code(s): F60.3 - Borderline personality disorder Assessment and Plan: various interpersonal conflicts (3) Bipolar 1 disorder: Status: Acute Code(s): F31.9 - Bipolar disorder, unspecified Assessment and Plan: no further si - feeling better some anxiety - Greater than 50% of the session was spent on counseling and/or coordination of care Reason for contiued inpatient stay Substantial Risk for: stable for discharge
[2020-08-27 10:00] VITALS: BP 134/96; PULSE 84; RESP 18; TEMP 36.8; O2SAT 97
[2020-08-27] MEDS: Nicotine 21 MG PATCH.TD24 TRANSDERMA (10:01)
[2020-08-27] MEDS: OLANZapine 5 MG TABLET PO (10:02)
[2020-08-27] MEDS: QUEtiapine Fumarate 100 MG TABLET PO ×3 (10:02→22:06)
[2020-08-27] MEDS: Omeprazole 20 MG CAPSULE.DR PO (10:02)
[2020-08-27] MEDS: lamoTRIgine 100 MG TABLET 200 MG PO ×2 (10:02→22:06)
[2020-08-27] MEDS: Methylphenidate HCl 10 MG TABLET 40 MG PO (10:03)
[2020-08-27] MEDS: Dolutegravir Sodium 50 MG TABLET PO (10:03)
[2020-08-27] MEDS: lamiVUDine 150 MG TABLET 300 MG PO (10:03)
[2020-08-27] MEDS: Mirabegron 25 MG TAB.ER.24H PO (10:03)
[2020-08-27] MEDS: Sertraline HCL 100 MG TABLET PO (10:04)
[2020-08-27] MEDS: Nicotine Polacrilex 2 MG GUM 4 MG BUCCAL ×4 (10:33→21:24)
[2020-08-27] MEDS: Methylphenidate HCl 10 MG TABLET 20 MG PO (14:29)
[2020-08-27 21:25] VITALS: BP 147/91; PULSE 86
[2020-08-27] MEDS: cloNIDine HCL 0.1 MG TABLET PO (21:25)
[2020-08-27 22:06] VITALS: BP 135/96; PULSE 87
[2020-08-27] MEDS: traZODone HCL 100 MG TABLET PO (22:06)
[2020-08-27] MEDS: Prazosin HCL 1 MG CAPSULE 2 MG PO (22:06)
[2020-08-27] MEDS: Atorvastatin Calcium 20 MG TABLET PO (22:06)
[2020-08-27] MEDS: OLANZapine 7.5 MG TABLET 15 MG PO (22:06)
[2020-08-27 22:09] VITALS: TEMP 36.6; O2SAT 98
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
[2020-08-28] MEDS: Nicotine 21 MG PATCH.TD24 TRANSDERMA (10:18)
[2020-08-28] MEDS: Mirabegron 25 MG TAB.ER.24H PO (10:18)
[2020-08-28] MEDS: lamoTRIgine 100 MG TABLET 200 MG PO (10:19)
[2020-08-28] MEDS: Methylphenidate HCl 10 MG TABLET 40 MG PO (10:19)
[2020-08-28] MEDS: Dolutegravir Sodium 50 MG TABLET PO (10:19)
[2020-08-28] MEDS: lamiVUDine 150 MG TABLET 300 MG PO (10:19)
[2020-08-28] MEDS: Omeprazole 20 MG CAPSULE.DR PO (10:19)
[2020-08-28] MEDS: Sertraline HCL 100 MG TABLET PO (10:19)
[2020-08-28] MEDS: QUEtiapine Fumarate 100 MG TABLET PO ×2 (10:19→14:15)
[2020-08-28] MEDS: OLANZapine 5 MG TABLET PO (10:19)
[2020-08-28] MEDS: Nicotine Polacrilex 2 MG GUM 4 MG BUCCAL ×3 (10:20→14:32)
[2020-08-28 10:27] VITALS: BP 142/70; PULSE 86; RESP 17; TEMP 37.1; O2SAT 95
[2020-08-28] MEDS: Methylphenidate HCl 10 MG TABLET 20 MG PO (13:28)
== END 2020-08-28 16:00 | disposition home or self-care (01) | DRG 885 ==
LOC: HO.ED 08-21 09:29 → HO.PADLT16 08-21 09:32
PROVIDERS: Physician Assistant Medical; Admitting Provider Psychiatry & Neurology Psychiatry; Emergency Provider Internal Medicine; Visit Provider Social Worker
DX: F31.9 Bipolar disorder, unspecified (principal); R45.851 Suicidal ideations; F14.10 Cocaine abuse, uncomplicated; I25.10 Atherosclerotic heart disease of native coronary artery without angina pectoris; F43.12 Post-traumatic stress disorder, chronic; F60.3 Borderline personality disorder; Z20.822 Contact with and (suspected) exposure to COVID-19; Z79.899 Other long term (current) drug therapy
CPT/HCPCS: 36415; 80053; 80061; 80307; 83036; 84443; 85025; 87635; 93005; 99285